=== PATIENT | female | born 1955 | race Caucasian/White ===

== ENCOUNTER → 2017-07-24 | Outpatient (CLI) | payer MEDICARE ==
[2017-07-24 11:07] LABS: ALT 30 U/L (9-52); AST 16 U/L (14-36); Cholesterol 121 mg/dL (<200); HDL Cholesterol 69 mg/dL (40-60)
== END | disposition home or self-care (01) ==
LOC: LABWHC1 09:13
PROVIDERS: ATTEND Internal Medicine Cardiovascular Disease
DX: E78.5 Hyperlipidemia, unspecified (principal); I25.10 Atherosclerotic heart disease of native coronary artery without angina pectoris
CPT/HCPCS: 36415; 80061; 84450; 84460

== ENCOUNTER 2019-09-12 09:06 | Inpatient (IN) | payer MEDICARE ==
[2019-09-12] MEDS ORDERED: NITROGLYCERIN OINT 1 INCH/GM PACKET TOPICAL STA (09:18)
--- NOTE | 2019-09-12 09:33 | ED ---
General Adult HPI - General Chief complaint: Chest Pain Stated complaint: hypertensive Time Seen by Provider: 09/12/19 09:06 Source: patient, EMS, RN notes reviewed Mode of arrival: EMS Limitations: no limitations - History of Present Illness Initial comments: This is a 64-year-old female with a history of hypertension and coronary artery disease with 3 stents laced 5 years ago who states she had the onset this morning and last evening of some jaw pain. She had nausea and vomiting this morning also developed a headache. Patient states the discomfort went into her shoulders and neck. She does say with her previous cardiac events he did not have chest pain but didn't fact have shoulder pain. She also has some diaphoresis. She does feel better she took some Zofran at home was given some more by paramedics. Also her blood pressure was noted be markedly elevated. She was given nitroglycerin for the jaw pain in the blood pressure did respond. Patient states she is still having some of the discomfort described additionally the patient does state that she had the onset 3 weeks ago of shingles. She does point to her right lower and lateral chest wall - Related Data Home Medications Medication Instructions Recorded Confirmed Omeprazole [PriLOSEC] 20 mg PO DAILY 03/04/14 10/17/16 Sertraline [Zoloft] 150 mg PO HS 09/04/14 10/17/16 Aspirin EC [Ecotrin Low Dose] 81 mg PO DAILY 10/17/16 10/17/16 Carvedilol [Coreg] 25 mg PO DAILY 10/17/16 10/17/16 Clopidogrel [Plavix] 75 mg PO DAILY 10/17/16 10/17/16 Previous Rx's Medication Instructions Recorded Nitroglycerin Sl Tabs [Nitrostat] 0.4 mg SUBLINGUAL Q5M PRN #25 tab 08/05/14 Azithromycin [Zithromax Tri-Ricardo] 500 mg PO DAILY #3 tab 10/19/16 Cefuroxime Axetil [Ceftin] 500 mg PO BID #14 tab 10/19/16 Lisinopril [Prinivil] 5 mg PO DAILY #30 tablet 10/19/16 Allergies Allergy/AdvReac Type Severity Reaction Status Date / Time prochlorperazine edisylate AdvReac Severe Hallucinati Verified 10/17/16 23:10 [From Compazine] ons prochlorperazine maleate AdvReac Severe Hallucinati Verified 10/17/16 23:10 [From Compazine] ons Review of Systems ROS Statement: Those systems with pertinent positive or pertinent negative responses have been documented in the HPI. ROS Other: All systems not noted in ROS Statement are negative. Past Medical History Past Medical History: GERD/Reflux, Hypertension, Myocardial Infarction (RI), Osteoarthritis (OA), Pneumonia Additional Past Medical History / Comment(s): ptsd,bbb, stress incont.hiatal hernia, pancreatitis x1,migraines. Shingles Last Myocardial Infarction Date:: 08-02-14 History of Any Multi-Drug Resistant Organisms: MRSA Date of last positivie culture/infection: 03/04/2014 MDRO Source:: Left Hand Past Surgical History: Cholecystectomy, Heart Catheterization With Stent, Joint Replacement Additional Past Surgical History / Comment(s): rt knee PARITAL REPLACEMENT, LT TOTAL KNEE REPLACEMENT, LASIK EYE SX, BENIGN LUMPS REMOVED FROM BREAST. laminectomy Past Anesthesia/Blood Transfusion Reactions: Postoperative Nausea & Vomiting (PONV) Date of Last Stent Placement:: 08-02-14 Past Psychological History: PTSD Smoking Status: Former smoker Past Alcohol Use History: None Reported Past Drug Use History: None Reported - Past Family History Father Family Medical History: Hyperlipidemia Additional Family Medical History / Comment(s): AT AGE 70- COLON CA W/METS TO STOMACH, 6 RI'S FIRST AT AGE 45 HAD QUAD BYPASS, SKIN CA Mother Additional Family Medical History / Comment(s): AT AGE 85- BRAIN TUMOR ALZHIEMERS, X 3 RI AND STROKE General Exam - General Exam Comments Initial Comments: this is a well-developed well-nourished awake alert oriented 3 female Limitations: no limitations General appearance: alert, anxious, in distress Head exam: Present: atraumatic, normocephalic, normal inspection Eye exam: Present: normal appearance, PERRL, EOMI. Absent: scleral icterus, conjunctival injection, periorbital swelling ENT exam: Present: normal exam, mucous membranes moist Neck exam: Present: normal inspection, tenderness, full ROM (Tenderness palpation of the paraspinous muscles of the back and trapezius musculature. No step-off or crepitation), other (Stridor JVD or bruits). Absent: meningismus, lymphadenopathy Respiratory exam: Present: normal lung sounds bilaterally, chest wall tenderness (Reproducible tenderness palpation over the anterior chest wall. No step-off or crepitation. Patient does have evidence of herpes zoster on the right chest wall. No evidence at this time of secondary infection.). Absent: respiratory distress, wheezes, rales, rhonchi, stridor Cardiovascular Exam: Present: regular rate, normal rhythm, normal heart sounds. Absent: systolic murmur, diastolic murmur, rubs, gallop, clicks GI/Abdominal exam: Present: soft, normal bowel sounds. Absent: distended, tenderness, guarding, rebound, rigid Extremities exam: Present: normal inspection, full ROM, normal capillary refill. Absent: tenderness, pedal edema, joint swelling, calf tenderness Back exam: Present: normal inspection Neurological exam: Present: alert, oriented X3, CN II-XII intact Psychiatric exam: Present: normal affect, normal mood Skin exam: Present: warm, intact, normal color, diaphoretic. Absent: rash Course Vital Signs 09/12/19 09/12/19 09/12/19 09:08 09:32 10:51 Temperature 97.7 F Pulse Rate 84 73 79 Respiratory 18 16 16 Rate Blood Pressure 154/86 153/97 181/101 O2 Sat by Pulse 95 97 99 Oximetry 09/12/19 09/12/19 11:38 12:30 Temperature Pulse Rate 76 81 Respiratory 16 18 Rate Blood Pressure 144/75 143/75 O2 Sat by Pulse 99 98 Oximetry - Reevaluation(s) Reevaluation #1: 09/12/19 13:19 Patient did have an elevated d-dimer a CT was ordered to rule out PE EKG Findings - EKG Results: EKG: interpreted by ERMD (Sinus rhythm of 80. Interval 138 QRS duration 120 QT/QTC of 446/514 red bundle-branch block pattern) Medical Decision Making - Medical Decision Making Patient still has complaints of headache though atypical back pain is gone away. The patient prior history previous presentation with cardiac disease with no chest pain patient be admitted I did discuss the case with Dr. Lam - Lab Data Result diagrams: 09/12/19 09:33 09/12/19 09:33 Lab Results 09/12/19 09/12/19 09/12/19 Range/Units 09:33 09:33 09:33 WBC 5.7 (3.8-10.6) k/uL RBC 4.72 (3.80-5.40) m/uL Hgb 12.8 (11.4-16.0) gm/dL Hct 38.9 (34.0-46.0) % MCV 82.4 (80.0-100.0) fL MCH 27.1 (25.0-35.0) pg MCHC 32.9 (31.0-37.0) g/dL RDW 15.8 H (11.5-15.5) % Plt Count 187 (150-450) k/uL Neutrophils % 76 % Lymphocytes % 15 % Monocytes % 5 % Eosinophils % 1 % Basophils % 1 % Neutrophils # 4.3 (1.3-7.7) k/uL Lymphocytes # 0.9 L (1.0-4.8) k/uL Monocytes # 0.3 (0-1.0) k/uL Eosinophils # 0.1 (0-0.7) k/uL Basophils # 0.0 (0-0.2) k/uL PT 11.2 (9.0-12.0) sec INR 1.1 (<1.2) APTT 23.2 (22.0-30.0) sec D-Dimer 0.70 H (<0.60) mg/L FEU Sodium 138 (137-145) mmol/L Potassium 3.9 (3.5-5.1) mmol/L Chloride 107 (98-107) mmol/L Carbon Dioxide 19 L (22-30) mmol/L Anion Gap 12 mmol/L BUN 21 H (7-17) mg/dL Creatinine 0.76 (0.52-1.04) mg/dL Est GFR (CKD-EPI)AfAm >90 (>60 ml/min/1.73 sqM) Est GFR (CKD-EPI)NonAf 84 (>60 ml/min/1.73 sqM) Glucose 185 H (74-99) mg/dL Calcium 9.2 (8.4-10.2) mg/dL Magnesium 1.6 (1.6-2.3) mg/dL Total Bilirubin 0.5 (0.2-1.3) mg/dL AST 21 (14-36) U/L ALT 24 (9-52) U/L Alkaline Phosphatase 130 H (38-126) U/L Creatine Kinase 36 (30-135) U/L Troponin I (0.000-0.034) ng/mL NT-Pro-B Natriuret Pep pg/mL Total Protein 7.1 (6.3-8.2) g/dL Albumin 4.0 (3.5-5.0) g/dL Lipase 86 (23-300) U/L 09/12/19 09/12/19 Range/Units 09:33 09:33 WBC (3.8-10.6) k/uL RBC (3.80-5.40) m/uL Hgb (11.4-16.0) gm/dL Hct (34.0-46.0) % MCV (80.0-100.0) fL MCH (25.0-35.0) pg MCHC (31.0-37.0) g/dL RDW (11.5-15.5) % Plt Count (150-450) k/uL Neutrophils % % Lymphocytes % % Monocytes % % Eosinophils % % Basophils % % Neutrophils # (1.3-7.7) k/uL Lymphocytes # (1.0-4.8) k/uL Monocytes # (0-1.0) k/uL Eosinophils # (0-0.7) k/uL Basophils # (0-0.2) k/uL PT (9.0-12.0) sec INR (<1.2) APTT (22.0-30.0) sec D-Dimer (<0.60) mg/L FEU Sodium (137-145) mmol/L Potassium (3.5-5.1) mmol/L Chloride (98-107) mmol/L Carbon Dioxide (22-30) mmol/L Anion Gap mmol/L BUN (7-17) mg/dL Creatinine (0.52-1.04) mg/dL Est GFR (CKD-EPI)AfAm (>60 ml/min/1.73 sqM) Est GFR (CKD-EPI)NonAf (>60 ml/min/1.73 sqM) Glucose (74-99) mg/dL Calcium (8.4-10.2) mg/dL Magnesium (1.6-2.3) mg/dL Total Bilirubin (0.2-1.3) mg/dL AST (14-36) U/L ALT (9-52) U/L Alkaline Phosphatase (38-126) U/L Creatine Kinase (30-135) U/L Troponin I <0.012 (0.000-0.034) ng/mL NT-Pro-B Natriuret Pep 67 pg/mL Total Protein (6.3-8.2) g/dL Albumin (3.5-5.0) g/dL Lipase (23-300) U/L - Radiology Data Radiology results: report reviewed (Did review the imaging and report no evidence of PE no acute findings.), image reviewed Critical Care Time Critical Care Time: Yes Critical Care Time: 31 minutes of critical care time which includes initial presentation with history physical labs x-rays review of old charting available multiple reevaluation the patient discussion with the main physician admission orders and documentation of the above Disposition Clinical Impression: Atypical chest pain, Unstable angina, Herpes zoster Disposition: ADMITTED IP TO THIS [facility] Condition: Fair Referrals: None,Stated [Primary Care Provider] - 1-2 days
[2019-09-12 09:43] LABS: Basophils % (A) 1 %; Eosinophils # (A) 0.1 k/uL (0-0.7); Eosinophils % (A) 1 %; HCT 38.9 % (34.0-46.0); HGB 12.8 gm/dL (11.4-16.0); Lymphocytes # (A) 0.9 k/uL (1.0-4.8); Lymphocytes % (A) 15 %; MCH 27.1 pg (25.0-35.0); MCHC 32.9 g/dL (31.0-37.0); MCV 82.4 fL (80.0-100.0); Mean Platelet Volume 6.9; Monocytes # (A) 0.3 k/uL (0-1.0); Monocytes % (A) 5 %; Neutrophils # (A) 4.3 k/uL (1.3-7.7); Neutrophils % (A) 76 %; Platelet Count 187 k/uL (150-450); RBC 4.72 m/uL (3.80-5.40); RDW 15.8 % (11.5-15.5); WBC 5.7 k/uL (3.8-10.6)
[2019-09-12] MEDS ORDERED: ONDANSETRON 4 MG/2 ML VIAL IVP STA (09:45)
[2019-09-12 09:53] LABS: ALT 24 U/L (9-52); AST 21 U/L (14-36); African American GFR (CKD) >90 (>60 ml/min/1.73 sqM); Alkaline Phosphatase 130 U/L (38-126); Anion Gap 12 mmol/L; Blood Urea Nitrogen 21 mg/dL (7-17); Calcium 9.2 mg/dL (8.4-10.2); Carbon Dioxide 19 mmol/L (22-30); Chloride 107 mmol/L (98-107); Creatine Kinase 36 U/L (30-135); Glucose 185 mg/dL (74-99); Magnesium 1.6 mg/dL (1.6-2.3); Non-African American GFR(CKD) 84 (>60 ml/min/1.73 sqM); Potassium 3.9 mmol/L (3.5-5.1); Sodium 138 mmol/L (137-145); Total Bilirubin 0.5 mg/dL (0.2-1.3); Total Protein 7.1 g/dL (6.3-8.2)
[2019-09-12 09:57] LABS: INR 1.1 (<1.2); Partial Thromboplastin Time 23.2 sec (22.0-30.0); Prothrombin Time 11.2 sec (9.0-12.0)
[2019-09-12 10:01] LABS: D-Dimer 0.7 mg/L FEU (<0.60)
--- NOTE | 2019-09-12 10:01 | XR ---
EXAMINATION TYPE: XR chest 2V DATE OF EXAM: 09/12/2019 HISTORY: Chest Pain. REFERENCE: Previous study dated 10/17/2016. FINDINGS: The study is rotated both projections There is silhouetting of the left heart border. The heart is mildly prominent. The right lung is ken r. IMPRESSION: I CANNOT EXCLUDE A LEFT LINGULAR INFILTRATE.
[2019-09-12] MEDS ORDERED: ACETAMINOPHEN TAB 325 MG TAB PO STA (10:47)
--- NOTE | 2019-09-12 11:35 | CT ---
EXAMINATION TYPE: CT angio chest DATE OF EXAM: 09/12/2019 11:14 AM COMPARISON: None. HISTORY: Elevated d-dimer, HTN, cough CT DLP: 852.2 mGycm Automated exposure control for dose reduction was used. CONTRAST: CTA scan of the thorax is performed with IV Contrast, patient injected with 100 mL of Isovue 370, pul monary embolism protocol. . FINDINGS: The lungs are clear. There is no significant axillary, internal mammary, mediastinal or hilar adenopathy There is no evidence of pulmonary embolus. The aorta is normal in caliber without dissection. The hea rt is mildly enlarged. There is a prominent, sliding hiatal hernia present. Visualized portions of the upper abdomen are oth erwise unremarkable. IMPRESSION: 1. THIS EXAMINATION IS NEGATIVE FOR PULMONARY EMBOLUS. 2. MILD CARDIOMEGALY. 3. HIATAL HERNIA.
[2019-09-12] MEDS ORDERED: HYDROmorphone 1 MG/ML 1 ML SYRINGE IVP STA (13:20)
[2019-09-12] MEDS ORDERED: NITROGLYCERIN SL TABS 0.4 MG TAB SUBLINGUAL PRN (13:22)
[2019-09-12] MEDS ORDERED: HEPARIN SODIUM,PORCINE 5,000 UNIT/ML 1 ML VIAL IV ONE (13:22)
[2019-09-12] MEDS ORDERED: HEPARIN SOD,PORK IN 0.45% NACL 25,000 UNIT in 0.45% NACL 1 250ML.BAG IV SCH (13:30)
[2019-09-12] MEDS: SODIUM CHLORIDE 0.9% 1,000 ML IV SCH (14:18)
[2019-09-12] MEDS ORDERED: ONDANSETRON 4 MG/2 ML VIAL IVP PRN (17:24)
[2019-09-12] MEDS: NITROGLYCERIN OINT 1 INCH/GM PACKET TOPICAL SCH (18:37)
[2019-09-12] MEDS: GABAPENTIN 100 MG CAP PO SCH (19:34)
[2019-09-12] MEDS: SERTRALINE 100 MG TAB PO SCH (19:34)
[2019-09-12] MEDS: ACETAMINOPHEN TAB 325 MG TAB PO PRN (23:01)
[2019-09-13] MEDS: NITROGLYCERIN OINT 1 INCH/GM PACKET TOPICAL SCH ×4 (00:24→16:43)
[2019-09-13 04:25] LABS: Cholesterol 167 mg/dL (<200); HDL Cholesterol 71 mg/dL (40-60); LDL Cholesterol,Calculated 54 mg/dL (0-99); Triglycerides 209 mg/dL (<150)
[2019-09-13] MEDS ORDERED: HEPARIN SODIUM,PORCINE 5,000 UNIT/ML 1 ML VIAL IV PRN (04:38)
[2019-09-13] MEDS: PANTOPRAZOLE 40 MG TABLET PO SCH (06:10)
--- NOTE | 2019-09-13 08:09 | P.CRDCN ---
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 She has a known history of hypertension, hyperlipidemia, coronary artery disease, prior history of smoking, strong family history of premature coronary artery disease, she presented with an anterior wall myocardial infarction in 2013, underwent cardiac catheterization which revealed a total occlusion of the mid LAD and proximal LAD which underwent stent placement by Dr. Vo. She does not follow regularly with a television reporter or a primary care doctor. also has a history of hiatal hernia and esophageal stricture with prior dilatation. She also has PTSD. Patient was diagnosed with shingles 3 weeks ago. She is currently on treatment for that. She presents to the hospital on this occasion with symptoms of left jaw pain which she described as quite severe in nature. She had associated diaphoresis and nausea with vomiting. According to the patient, the jaw discomfort did radiate into her shoulders and her neck. She states that she did not have pain similar to this with her myocardial infarction, she did have s ome mild diaphoresis at that time. Patient denies any chest discomfort but does complain of some mid epigastric pain that is extremely tender on palpation, and quite tender when she coughs or laughs. Her shingles started in the mid body region on her abdomen and radiates around the right side to her back. Chest x- ray performed on admission here could not exclude a left lingular infiltrate. CTA of the chest was negative for pulmonary embolism, showed some mild cardiomegaly and hiatal hernia. Chest x-ray on presentation here showed a normal sinus rhythm with a right bundle branch block pattern and nonspecific ST- T wave changes. White blood cell count 5.7, hemoglobin 12.8, platelet count 187. D-dimer 0.7. Sodium 138, potassium 3.9, BUN 21 and creatinine 0.7, magnesium 1.6. Troponins have been negative 3. Cholesterol 167, LDL 54, HDL 71, triglycerides 209. Lipase is normal, AST ALT normal. Alk phos 1:30. At the time of my examination this morning, patient denies any chest discomfort, no diaphoresis no shortness of breath or nausea. She does have extreme tenderness in the midepigastric area that seems to radiate through to her back. Very tender on palpation, extremely tender with coughing or laughing. Past Medical History Past Medical History: GERD/Reflux, Hypertension, Myocardial Infarction (RI), Osteoarthritis (OA), Pneumonia Additional Past Medical History / Comment(s): ptsd, stress incont.hiatal hernia, pancreatitis x1,migraines. Shingles Last Myocardial Infarction Date:: 08-02-14 History of Any Multi-Drug Resistant Organisms: MRSA Date of last positivie culture/infection: 03/04/2014 MDRO Source:: Left finger Past Surgical History: Cholecystectomy, Heart Catheterization With Stent, Joint Replacement Additional Past Surgical History / Comment(s): rt knee PARITAL REPLACEMENT, LT TOTAL KNEE REPLACEMENT, LASIK EYE SX, BENIGN LUMPS REMOVED FROM BREAST. laminectomy, 3 cardiac stents. Past Anesthesia/Blood Transfusion Reactions: Postoperative Nausea & Vomiting (PONV) Date of Last Stent Placement:: 08-02-14 Past Psychological History: PTSD Smoking Status: Former smoker Past Alcohol Use History: None Reported Additional Past Alcohol Use History / Comment(s): STARTED SMOKING AT AGE 16 SMOKED 1 TO 1.5 PPD, QUIT 35 YEARS AGO Past Drug Use History: None Reported - Past Family History Father Family Medical History: Hyperlipidemia Additional Family Medical History / Comment(s): AT AGE 70- COLON CA W/METS TO STOMACH, 6 RI'S FIRST AT AGE 45 HAD QUAD BYPASS, SKIN CA Mother Additional Family Medical History / Comment(s): AT AGE 85- BRAIN TUMOR ALZHIEMERS, X 3 RI AND STROKE Medications and Allergies Home Medications Medication Instructions Recorded Confirmed Type Omeprazole [PriLOSEC] 20 mg PO DAILY 03/04/14 09/12/19 History Nitroglycerin Sl Tabs [Nitrostat] 0.4 mg SUBLINGUAL Q5M PRN #25 tab 08/05/14 09/12/19 Rx Sertraline [Zoloft] 100 mg PO HS 09/04/14 09/12/19 History Aspirin EC [Ecotrin Low Dose] 81 mg PO DAILY 10/17/16 09/12/19 History Ibuprofen [Motrin] 600 mg PO Q6HR PRN 09/12/19 09/12/19 History Losartan Potassium [Cozaar] 25 mg PO DAILY 09/12/19 09/12/19 History Allergies Allergy/AdvReac Type Severity Reaction Status Date / Time prochlorperazine edisylate AdvReac Severe Hallucinati Verified 09/12/19 13:45 [From Compazine] ons prochlorperazine maleate AdvReac Severe Hallucinati Verified 09/12/19 13:45 [From Compazine] ons lisinopril AdvReac Coughing Verified 09/12/19 13:45 Physical Exam Vitals: Vital Signs Temp Pulse Pulse Resp BP BP Pulse Ox 09/13/19 03:47 89 18 134/85 96 09/13/19 00:00 80 18 181/93 96 09/12/19 19:16 97.9 F 85 18 180/77 97 09/12/19 16:00 87 20 09/12/19 15:41 97 09/12/19 15:15 97.6 F 87 20 180/79 96 09/12/19 14:00 77 16 150/82 92 L 09/12/19 13:40 75 18 152/77 09/12/19 13:30 80 11 L 152/77 96 09/12/19 13:20 80 6 L 169/104 97 09/12/19 13:10 80 5 L 169/104 95 09/12/19 13:00 76 6 L 166/98 96 09/12/19 12:50 75 13 166/98 96 09/12/19 12:30 82 21 143/75 95 09/12/19 11:38 76 16 144/75 99 09/12/19 10:51 79 16 181/101 99 09/12/19 09:32 73 16 153/97 97 09/12/19 09:08 97.7 F 84 18 154/86 95 Intake and Output 09/12/19 09/13/19 09/13/19 22:59 06:59 14:59 Intake Total 64.468 81.219 Output Total 1 Balance 64.468 80.219 Intake: Intake, IV Titration 64.468 81.219 Amount Heparin Sod,Pork in 0.45% 64.468 81.219 NaCl 25,000 unit In 0.45 % NaCl 1 250ml.bag @ 8.41 UNITS/KG/HR 9.995 mls/hr IV .Q24H [facility] Rx#: [id number] Output: Stool 1 Other: Voiding Method Toilet Toilet # Voids 1 Weight 113 kg PHYSICAL EXAMINATION: GENERAL: 64-year-old female in no acute distress at the time of my examination HEENT: Head is atraumatic, normocephalic. Pupils equal, round. Sclera anicteric. Conjunctiva are clear. Mucous membranes of the mouth are moist. Neck is supple. There is no elevated jugular venous pressure. No carotid bruit is heard. HEART EXAMINATION: Heart S1, S2 normal. No murmur or gallop heard. CHEST EXAMINATION: Lungs are clear to auscultation and precussion. No chest wall tenderness is noted on palpation or with deep breathing. ABDOMEN: Soft, obese, mid epigastric tenderness, evidence of shingles rash from the mid body region in the abdomen around to her back on the right side. Bowel sounds are heard. No organomegaly noted. EXTREMITIES: 2+ peripheral pulses with no evidence of peripheral edema and no calf tenderness noted. NEUROLOGIC patient is awake, alert and oriented 3. . Results 09/12/19 09:33 09/12/19 09:33 Cardiac Enzymes 09/12/19 09/12/19 09/12/19 Range/Units 09:33 09:33 16:03 AST 21 (14-36) U/L Troponin I <0.012 <0.012 (0.000-0.034) ng/mL 09/12/19 Range/Units 20:43 AST (14-36) U/L Troponin I <0.012 (0.000-0.034) ng/mL Coagulation 09/12/19 09/12/19 09/13/19 Range/Units 09:33 20:43 02:43 PT 11.2 (9.0-12.0) sec APTT 23.2 35.8 H 33.9 H (22.0-30.0) sec Lipids 09/13/19 Range/Units 02:43 Triglycerides 209 H (<150) mg/dL Cholesterol 167 (<200) mg/dL HDL Cholesterol 71 H (40-60) mg/dL CBC 09/12/19 Range/Units 09:33 WBC 5.7 (3.8-10.6) k/uL RBC 4.72 (3.80-5.40) m/uL Hgb 12.8 (11.4-16.0) gm/dL Hct 38.9 (34.0-46.0) % Plt Count 187 (150-450) k/uL Comprehensive Metabolic Panel 09/12/19 Range/Units 09:33 Sodium 138 (137-145) mmol/L Potassium 3.9 (3.5-5.1) mmol/L Chloride 107 (98-107) mmol/L Carbon Dioxide 19 L (22-30) mmol/L BUN 21 H (7-17) mg/dL Creatinine 0.76 (0.52-1.04) mg/dL Glucose 185 H (74-99) mg/dL Calcium 9.2 (8.4-10.2) mg/dL AST 21 (14-36) U/L ALT 24 (9-52) U/L Alkaline Phosphatase 130 H (38-126) U/L Total Protein 7.1 (6.3-8.2) g/dL Albumin 4.0 (3.5-5.0) g/dL Current Medications Generic Name Dose Route Start Last Admin Trade Name Freq PRN Reason Stop Dose Admin Acetaminophen 650 mg 09/12/19 17:24 09/12/19 23:01 Tylenol Tab PO 650 mg Q6HR PRN Administration Fever and/ or Pain Aspirin 81 mg 09/13/19 09:00 Aspirin PO DAILY SHARONDA Gabapentin 100 mg 09/12/19 22:00 09/12/19 19:34 Neurontin PO 100 mg TID SHARONDA Administration Heparin Sodium (Porcine) 0 unit 09/13/19 04:38 09/13/19 04:45 Heparin IV 4,000 unit PER PROTOCOL PRN Administration Low PTT Protocol Sodium Chloride 1,000 mls @ 20 mls/hr 09/12/19 13:30 09/12/19 14:18 Saline 0.9% IV 20 mls/hr .Q24H SH[facility]ONDA Administration Heparin Sodium/Sodium Chloride 250 mls @ 9.995 mls/hr 09/12/19 13:30 09/13/19 03:00 25,000 unit/ Sodium Chloride IV 13.46 units/kg/hr .Q24H SH[facility]ONDA 15.996 mls/hr Titration Protocol 8.41 UNITS/KG/HR Nitroglycerin 0.4 mg 09/12/19 13:22 Nitrostat SUBLINGUAL Q5M PRN Chest Pain Nitroglycerin 1 inch 09/12/19 18:00 09/13/19 06:08 Nitro-Bid Oint TOPICAL Not Given Q6HR [facility] Ondansetron HCl 4 mg 09/12/19 17:24 Zofran IVP Q6HR PRN Nausea And Vomiting Pantoprazole Sodium 40 mg 09/13/19 07:30 09/13/19 06:10 Protonix PO 40 mg [id number] SHARONDA Administration Sertraline HCl 100 mg 09/12/19 21:00 09/12/19 19:34 Zoloft PO 100 mg HS SHARONDA Administration Intake and Output 09/12/19 09/13/19 09/13/19 22:59 06:59 14:59 Intake Total 64.468 81.219 Output Total 1 Balance 64.468 80.219 Intake: Intake, IV Titration 64.468 81.219 Amount Heparin Sod,Pork in 0.45% 64.468 81.219 NaCl 25,000 unit In 0.45 % NaCl 1 250ml.bag @ 8.41 UNITS/KG/HR 9.995 mls/hr IV .Q24H [facility] Rx#: [id number] Output: Stool 1 Other: Voiding Method Toilet Toilet # Voids 1 Weight 113 kg 09/12/19 09:33 09/12/19 09:33 EKG Interpretations (text) EKG showed normal sinus rhythm with a right bundle branch block pattern and nonspecific ST-T wave changes. Assessment and Plan Plan: Assessment and plan #1 symptoms of left-sided jaw discomfort with radiation to the shoulders and up per back area, associated diaphoresis, nausea and vomiting. Troponins negative 3. EKG shows a normal sinus rhythm with right bundle branch block pattern and nonspecific ST-T wave changes. CTA of the chest negative for pulmonary embolism. #2 history of anterior wall myocardial infarction with prior stenting of the LAD in 2013 #3 hypertension #4 hyperlipidemia #5 prior history of smoking #6 strong family history of premature coronary artery disease #7 hiatal hernia and history of esophageal stricture with dilatation #8 PTSD #9 shingles #10 noncompliance, patient does not follow with a television reporter or primary care doctor. She also stopped taking her statin. Plan We will obtain an echocardiogram with Doppler study. Continue baby aspirin, Cozaar 25 mg daily, we will also start the patient on a statin, beta tigist. The patient's symptoms of abdominal discomfort could be related to her shingles, recommend a GI evaluation as well. We will discontinue her heparin. She was scheduled to see her accounting manager controller at [place], she did not make that appointment. Once the patient is stable from that perspective, recommend she undergo stress testing. Further recommendations to follow. DNP note has been reviewed, I agree with a documented findings and plan of care. Patient was seen and examined.
[2019-09-13] MEDS ORDERED: NON FORMULARY DRUG (Carvedilol [Coreg] 25 MG) PO SCH (09:00)
[2019-09-13] MEDS ORDERED: ASPIRIN 325 MG TAB PO SCH (09:00)
[2019-09-13] MEDS ORDERED: LISINOPRIL 5 MG TAB PO SCH (09:00)
[2019-09-13] MEDS ORDERED: CLOPIDOGREL 75 MG TAB PO SCH (09:00)
[2019-09-13] MEDS: ASPIRIN 81 MG PO SCH (09:19)
[2019-09-13] MEDS: METOPROLOL TARTRATE 25 MG TAB PO SCH ×2 (09:19→21:22)
[2019-09-13] MEDS: ATORVASTATIN 40 MG TAB PO SCH (09:20)
[2019-09-13] MEDS: GABAPENTIN 100 MG CAP PO SCH ×3 (09:20→21:22)
[2019-09-13] MEDS: ACETAMINOPHEN TAB 325 MG TAB PO PRN ×2 (09:21→19:21)
--- NOTE | 2019-09-13 11:30 | P.HPIM ---
History of Present Illness H&P Date: 09/12/19 Chief Complaint: Chest pain Patient is a 64-year-old female with a known history of coronary artery disease status post stent placement in 2013, hypertension, [place], GERD, osteoarthritis and other multiple medical problems came to ER with complaints of left jaw pain. This is with some shortness of breath and nausea and 1 episode of vomiting. Patient also felt some pain in her left shoulder. Patient says that when she had previous [place] she developed left shoulder pain. She says that she always have atypical symptoms. Patient did have some diaphoresis when she had the pain. Patient also complained of nausea. Blood pressure was elevated on admission. Patient has been having herpes zoster rash on her right anterior abdominal wall below the breast for the past 4 weeks. She completed the course of valacyclovir recently. Denied any newly developed rash. Patient is complaining of burning sensation over the rash. Otherwise no fever no chills. No cough is from pro duction. Denied any recent upper respiratory illnesses. No recent travel. EKG showed normal sinus. CTA of the chest negative for pulmonary embolism. Mild cardiac megaly. Hiatal hernia. Review of Systems Constitutional: Patient denies any fever or chills . No generalized weakness or weight loss. Abdomen: Patient did have nausea and vomiting. No diarrhea and abdominal pain. Cardiovascular: Patient denies any chest pain or short of breath no palpitations. Left jaw pain. Respiratory: patient denied any cough is from production. No shortness of breath Neurologic: Patient denied any numbness or tingling headache. Musculoskeletal: Patient denies any complaints of joint swelling or deformity. Skin: Negative Psychiatric: Negative Endocrine: No heat or cold intolerance. No recent weight gain. Genitourinary: No dysuria or hematuria. All other 14 point ROS negative except the above Past Medical History Past Medical History: GERD/Reflux, Hypertension, Myocardial Infarction (CO), Osteoarthritis (OA), Pneumonia Additional Past Medical History / Comment(s): ptsd, stress incont.hiatal hernia, pancreatitis x1,migraines. Shingles Last Myocardial Infarction Date:: 08-02-14 History of Any Multi-Drug Resistant Organisms: MRSA Date of last positivie culture/infection: 03/04/2014 MDRO Source:: Left finger Past Surgical History: Cholecystectomy, Heart Catheterization With Stent, Joint Replacement Additional Past Surgical History / Comment(s): rt knee PARITAL REPLACEMENT, LT TOTAL KNEE REPLACEMENT, LASIK EYE SX, BENIGN LUMPS REMOVED FROM BREAST. laminectomy, 3 cardiac stents. Past Anesthesia/Blood Transfusion Reactions: Postoperative Nausea & Vomiting (PONV) Date of Last Stent Placement:: 08-02-14 Past Psychological History: PTSD Smoking Status: Former smoker Past Alcohol Use History: None Reported Additional Past Alcohol Use History / Comment(s): STARTED SMOKING AT AGE 16 SMOKED 1 TO 1.5 PPD, QUIT 35 YEARS AGO Past Drug Use History: None Reported - Past Family History Father Family Medical History: Hyperlipidemia Additional Family Medical History / Comment(s): AT AGE 70- COLON CA W/METS TO STOMACH, 6 CO'S FIRST AT AGE 45 HAD QUAD BYPASS, SKIN CA Mother Additional Family Medical History / Comment(s): AT AGE 85- BRAIN TUMOR ALZHIEMERS, X 3 CO AND STROKE Medications and Allergies Home Medications Medication Instructions Recorded Confirmed Type Omeprazole [PriLOSEC] 20 mg PO DAILY 03/04/14 09/12/19 History Nitroglycerin Sl Tabs [Nitrostat] 0.4 mg SUBLINGUAL Q5M PRN #25 tab 08/05/14 09/12/19 Rx Sertraline [Zoloft] 100 mg PO HS 09/04/14 09/12/19 History Aspirin EC [Ecotrin Low Dose] 81 mg PO DAILY 10/17/16 09/12/19 History Ibuprofen [Motrin] 600 mg PO Q6HR PRN 09/12/19 09/12/19 History Losartan Potassium [Cozaar] 25 mg PO DAILY 09/12/19 09/12/19 History Allergies Allergy/AdvReac Type Severity Reaction Status Date / Time prochlorperazine edisylate AdvReac Severe Hallucinati Verified 09/12/19 13:45 [From Compazine] ons prochlorperazine maleate AdvReac Severe Hallucinati Verified 09/12/19 13:45 [From Compazine] ons lisinopril AdvReac Coughing Verified 09/12/19 13:45 Physical Exam Vitals: Vital Signs Temp Pulse Pulse Resp BP BP Pulse Ox 09/12/19 16:00 87 20 09/12/19 15:41 97 09/12/19 15:15 97.6 F 87 20 180/79 96 09/12/19 14:00 77 16 150/82 92 L 11/16/19 13:40 75 18 152/77 09/12/19 13:30 80 11 L 152/77 96 09/12/19 13:20 80 6 L 169/104 97 09/12/19 13:10 80 5 L 169/104 95 09/12/19 13:00 76 6 L 166/98 96 09/12/19 12:50 75 13 166/98 96 09/12/19 12:30 82 21 143/75 95 09/12/19 11:38 76 16 144/75 99 09/12/19 10:51 79 16 181/101 99 09/12/19 09:32 73 16 153/97 97 09/12/19 09:08 97.7 F 84 18 154/86 95 Intake and Output 09/12/19 09/12/19 09/12/19 06:59 14:59 22:59 Other: Voiding Method Toilet # Voids 1 Weight 118.841 kg PHYSICAL EXAMINATION: Patient is lying in the bed comfortably, no acute distress, awake alert and oriented.. HEENT: Normocephalic. Neck is supple. Pupils reactive. Nostrils clear. Oral cavity is moist. Ears reveal no drainage. Neck reveals no JVD, carotid bruits, or thyromegaly. CHEST EXAMINATION: Trachea is central. Symmetrical expansion. Lung gamez clear to auscultation and percussion. CARDIAC: Normal S1, S2 with no gallops. No murmurs ABDOMEN: Soft. Bowel sounds normal. No organomegaly. No abdominal bruits. Patient does have right upper anterior abdominal wall reddish rash with crusted lesions. Extremities: reveal no edema. No clubbing or cyanosis Neurologically awake, alert, oriented x3 with well-coordinated movements. No focal deficits noted Skin: No rash or skin lesions. Psychiatric: Coperative. Nonsuicidal Musculoskeletal: No joint swelling or deformity. Normal range of motion. Results CBC & Chem 7: 09/12/19 09:33 09/12/19 09:33 Labs: Abnormal Lab Results - Last 24 Hours (Table) 09/12/19 09/12/19 09/12/19 Range/Units 09:33 09:33 09:33 RDW 15.8 H (11.5-15.5) % Lymphocytes # 0.9 L (1.0-4.8) k/uL D-Dimer 0.70 H (<0.60) mg/L FEU Carbon Dioxide 19 L (22-30) mmol/L BUN 21 H (7-17) mg/dL Glucose 185 H (74-99) mg/dL Alkaline Phosphatase 130 H (38-126) U/L Thrombosis Risk Factor Assmnt - DVT/VTE Prophylaxis DVT/VTE Prophylaxis: Pharmacologic Prophylaxis ordered - Choose All That Apply Any of the Below Risk Factors Present?: Yes Each Factor Represents 1 point: Obesity (BMI >25) Other Risk Factors: Yes Each Risk Factor Represents 2 Points: Age 61-74 years Thrombosis Risk Factor Assessment Total Risk Factor Score: 3 Thrombosis Risk Factor Assessment Level: Moderate Risk Assessment and Plan Assessment: Atypical chest pain. Rule out ACS Elevated d-dimer level. CT angiogram is negative for pulmonary embolism. History of coronary artery disease status post and placement and [place] in 2014 Recent herpes zoster infection. Currently no new lesions noted. Postherpetic neuralgia PTSD Migraine headaches Hypertension uncontrolled GERD Osteoarthritis Previous history of smoking DVT prophylaxis with heparin subcu Plan: Patient be continued on telemetry monitoring. Serial EKGs and troponins. Continue somatic management for nausea. Patient will be started on Neurontin for postherpetic neuralgia. Continue the home medications and follow closely. Cardiology was consulted for further evaluation. Time with Patient: Greater than 30
[2019-09-13] MEDS: SODIUM CHLORIDE 0.9% 1,000 ML IV SCH (14:44)
[2019-09-13] MEDS ORDERED: LOSARTAN 25 MG TAB PO STA (15:34)
[2019-09-13] MEDS ORDERED: hydrALAZINE HCL 20 MG/ML 1 ML VIAL IVP PRN (17:35)
[2019-09-13] MEDS ORDERED: amLODIPine 5 MG TAB PO STA (17:37)
[2019-09-13] MEDS: SERTRALINE 100 MG TAB PO SCH (21:22)
[2019-09-14] MEDS: ACETAMINOPHEN TAB 325 MG TAB PO PRN ×2 (00:42→09:21)
[2019-09-14] MEDS: NITROGLYCERIN OINT 1 INCH/GM PACKET TOPICAL SCH ×2 (00:43→05:43)
[2019-09-14 03:20] VITALS: TEMP 98.1
[2019-09-14] MEDS: PANTOPRAZOLE 40 MG TABLET PO SCH (06:43)
[2019-09-14] MEDS ORDERED: LOSARTAN 25 MG TAB PO SCH (09:00)
[2019-09-14] MEDS: ASPIRIN 81 MG PO SCH (09:21)
[2019-09-14] MEDS: GABAPENTIN 100 MG CAP PO SCH (09:21)
[2019-09-14] MEDS: METOPROLOL TARTRATE 25 MG TAB PO SCH (09:21)
[2019-09-14] MEDS: ATORVASTATIN 40 MG TAB PO SCH (09:21)
--- NOTE | 2019-09-14 11:01 | ECHOF ---
Referral Reason:chest pain MEASUREMENTS -------- HEIGHT: 160.0 cm WEIGHT: 113.4 kg BP: 155/94 RVIDd: 3.3 cm (< 3.3) IVSd: 1.3 cm (0.6 - 1.1) LVIDd: 5.0 cm (3.9 - 5.3) LVPWd: 1.3 cm (0.6 - 1.1) IVSs: 2.0 cm LVIDs: 3.3 cm LVPWs: 1.7 cm LA Diam: 3.6 cm (2.7 - 3.8) LAESV Index (A-L): 21.74 ml/m Ao Diam: 3.2 cm (2.0 - 3.7) AV Cusp: 2.1 cm (1.5 - 2.6) MV EXCURSION: 14.577 mm (> 18.000) MV EF SLOPE: 49 mm/s (70 - 150) EPSS: 0.8 cm MV E Martir: 0.87 m/s MV DecT: 203 ms MV A Martir: 0.88 m/s MV E/A Ratio: 0.99 RAP: 5.00 mmHg RVSP: 28.49 mmHg TAPSE: 19.37 mm FINDINGS -------- Sinus rhythm. This was a technically adequate study. The left ventricular size is normal. There is mild concentric left ventricular hypertrophy. Overa ll left ventricular systolic function is normal with, an EF between 60 - 65 %. The diastolic fillin g pattern indicates impaired relaxation 23.18. The right ventricle is mildly enlarged. Normal LA size by volume 22+/-6 ml/m2. The right atrium is normal in size. Interatrial and interventricular septum intact. The aortic valve is trileaflet and appears structurally normal. Mild mitral regurgitation is present. Mild tricuspid regurgitation present. Right ventricular systolic pressure is normal at < 35 mmHg. There is no pulmonic regurgitation present. The aortic root size is normal. IVC Not well visulized. There is no pericardial effusion. CONCLUSIONS -------- 1. Sinus rhythm. 2. This was a technically adequate study. 3. The left ventricular size is normal. 4. There is mild concentric left ventricular hypertrophy. 5. Overall left ventricular systolic function is normal with, an EF between 60 - 65 %. 6. The diastolic filling pattern indicates impaired relaxation 23.18.. 7. The right ventricle is mildly enlarged. 8. Normal LA size by volume 22+/-6 ml/m2. 9. The right atrium is normal in size. 10. Interatrial and interventricular septum intact. 11. The aortic valve is trileaflet and appears structurally normal. 12. Mild mitral regurgitation is present. 13. Mild tricuspid regurgitation present. 14. Right ventricular systolic pressure is normal at < 35 mmHg. 15. There is no pulmonic regurgitation present. 16. The aortic root size is normal. 17. IVC Not well visulized. 18. There is no pericardial effusion. DITCH CLEANER: Jeannette Odell RDCS
[2019-09-14] MEDS ORDERED: MAG HYDROX/AL HYDROX/SIMETH 30 ML, diphenhydrAMINE ELIXIR 75 MG, LIDOCAINE VISCOUS 30 ML PO SCH ×3 (12:30)
[2019-09-14] MEDS ORDERED: valACYclovir 500 MG TAB PO SCH (12:30)
[2019-09-14 13:39] VITALS: BP 154/97; PULSE 65; RESP 16
--- NOTE | 2019-09-14 14:51 | P.PN ---
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 She has a known history of hypertension, hyperlipidemia, coronary artery disease, prior history of smoking, strong family history of premature coronary artery disease, she presented with an anterior wall myocardial infarction in 2013, underwent cardiac catheterization which revealed a total occlusion of the mid LAD and proximal LAD which underwent stent placement by Dr. Vo. She does not follow regularly with a crane hooker or a primary care doctor. also has a history of hiatal hernia and esophageal stricture with prior dilatation. She also has PTSD. Patient was diagnosed with shingles 3 weeks ago. She is currently on treatment for that. She presents to the hospital on this occasion with symptoms of left jaw pain which she described as quite severe in nature. She had associated diaphoresis and nausea with vomiting. According to the patient, the jaw discomfort did radiate into her shoulders and her neck. She states that she did not have pain similar to this with her myocardial infarction, she did have some mild diaphoresis at that time. Patient denies any chest discomfort but does complain of some mid epigastric pain that is extremely tender on palpation, and quite tender when she coughs or laughs. Her shingles started in the mid body region on her abdomen and radiates around the right side to her back. Chest x-ray performed on admission here could not exclude a left lingular infiltrate. CTA of the chest was negative for pulmonary embolism, showed some mild cardiomegaly and hiatal hernia. Chest x-ray on presentation here showed a normal sinus rhythm with a right bundle branch block pattern and nonspecific ST- T wave changes. White blood cell count 5.7, hemoglobin 12.8, platelet count 187. D-dimer 0.7. Sodium 138, potassium 3.9, BUN 21 and creatinine 0.7, magnesium 1.6. Troponins have been negative 3. Cholesterol 167, LDL 54, HDL 71, triglycerides 209. Lipase is normal, AST ALT normal. Alk phos 1:30. At the time of my examination this morning, patient denies any chest discomfort, no diaphoresis no shortness of breath or nausea. She does have extreme tenderness in the midepigastric area that seems to radiate through to her back. Very tender on palpation, extremely tender with coughing or laughing. 09/14/2019 Patient was seen and examined this morning, no further chest discomfort. Recent echocardiogram with Doppler study which was performed was reviewed was negative for reversible ischemia. Echocardiogram with Doppler study revealed a normal left ventricular systolic function. Objective - Vital Signs Vital signs: Vital Signs Temp 98.1 F 09/14/19 03:17 Pulse 65 09/14/19 12:00 Resp 16 09/14/19 12:00 BP 154/97 09/14/19 12:00 Pulse Ox 96 09/14/19 12:00 Intake & Output 09/13/19 09/14/19 09/14/19 18:59 06:59 18:59 Intake Total 720 120 462 Output Total 2 Balance 720 118 462 Weight 113.7 kg Intake: Oral 720 120 462 Output: Stool 2 Other: Voiding Method Toilet Toilet # Voids 1 1 - Exam PHYSICAL EXAMINATION: GENERAL: 64-year-old female in no acute distress at the time of my examination HEENT: Head is atraumatic, normocephalic. Pupils equal, round. Sclera anicteric. Conjunctiva are clear. Mucous membranes of the mouth are moist. Neck is supple. There is no elevated jugular venous pressure. No carotid bruit is heard. HEART EXAMINATION: Heart S1, S2 normal. No murmur or gallop heard. CHEST EXAMINATION: Lungs are clear to auscultation and precussion. No chest wall tenderness is noted on palpation or with deep breathing. ABDOMEN: Soft, obese, mid epigastric tenderness, evidence of shingles rash from the mid body region in the abdomen around to her back on the right side. Bowel sounds are heard. No organomegaly noted. EXTREMITIES: 2+ peripheral pulses with no evidence of peripheral edema and no calf tenderness noted. NEUROLOGIC patient is awake, alert and oriented 3. - Labs CBC & Chem 7: 09/12/19 09:33 09/12/19 09:33 Assessment and Plan Plan: Assessment and plan #1 symptoms of left-sided jaw discomfort with radiation to the shoulders and upper back area, associated diaphoresis, nausea and vomiting. Troponins negative 3. EKG shows a normal sinus rhythm with right bundle branch block pattern and nonspecific ST-T wave changes. CTA of the chest negative for pulmonary embolism. #2 history of anterior wall myocardial infarction with prior stenting of the LAD in 2014 #3 hypertension #4 hyperlipidemia #5 prior history of smoking #6 strong family history of premature coronary artery disease #7 hiatal hernia and history of esophageal stricture with dilatation #8 PTSD #9 shingles #10 noncompliance, patient does not follow with a crane hooker or primary care doctor. She also stopped taking her statin. Plan From cardiology's perspective, the patient may be discharged home today. She's been advised to follow-up with cardiology and to establish a primary care doctor. DNP note has been reviewed, I agree with a documented findings and plan of care. Patient was seen and examined.
--- NOTE | 2019-09-14 15:16 | P.DS ---
Providers Date of admission: 09/14/19 08:43 Expected date of discharge: 09/14/19 Attending physician: Sherri Lam Consults: 09/12/19 13:22 Consult Physician Urgent Consulting Provider: Cnythia Duarte Consult Reason/Comments: Atypical chest pain Do you want consulting provider notified?: Yes Primary care physician: Stated None Hospital Course: Final diagnosis -Atypical chest pain -Elevated d-dimer level. CT angiogram is negative for pulmonary embolism. -History of coronary artery disease status post and placement and [place] in 2013 -Recent herpes zoster infection -Postherpetic neuralgia -PTSD -Migraine headaches -Hypertension uncontrolled -GERD -Osteoarthritis -Previous history of smoking -DVT prophylaxis Discharge disposition Patient is being discharged in a stable condition with guarded prognosis to home and will follow-up with cardiology in 1-2 weeks as discussed. Patient was given resources to follow-up with primary care provider. Total time taken is 35 minutes. History of present illness This is a 64-year-old female who was recently admitted with complaints of jaw pain, shortness of breath, nausea and was being closely monitored. Cardiology was following. During hospitalization patient underwent an echo that was normal with an EF of 60 -65%. Patient will follow-up with cardiology in the outpatient setting in 1-2 weeks for possible stress test. Patient currently does not have a primary care provider and resources were provided upon discharge. Patient instructed and encouraged to obtain a primary care provider upon discharge for continuity of care. Patient verbalized understanding of this treatment plan. During hospitalization patient had continued opened oozing lesions noted underneath the breast area that radiates around the back and linear pattern and is recently just had herpes zoster infection. Patient will be started on Valtrex and will continue in the outpatient setting. Currently patient's condition is stable with much improvement in like to be discharged today. Patient denies any chest pain, shortness of breath, or palpitations. Patient is afebrile. Patient denies any nausea or vomiting and is been tolerating diet. Guarded prognosis. On exam vital signs are stable. Temp is 98.1F, pulse is 65, respirations are 16, blood pressure is 154/97, oxygen saturation is 96% on room air. Cardio S1, S2 are present. Respiratory system shows diminished breath sounds at the bases otherwise clear to auscultation. Abdomen is soft, obese, and nontender. Nervous system shows no focal deficits. Please refer to medication reconciliation sheet for a list of medications. Patient Condition at Discharge: Fair Plan - Discharge Summary Discharge Rx Participant: No New Discharge Prescriptions: New Atorvastatin [Lipitor] 40 mg PO DAILY 30 Days #30 tab Metoprolol Tartrate [Lopressor] 25 mg PO BID 30 Days #60 tab Gabapentin [Neurontin] 100 mg PO TID #12 cap valACYclovir [Valtrex] 1,000 mg PO DAILY 7 Days #7 tab Continue Omeprazole [PriLOSEC] 20 mg PO DAILY Nitroglycerin Sl Tabs [Nitrostat] 0.4 mg SUBLINGUAL Q5M PRN #25 tab PRN Reason: Chest Pain Sertraline [Zoloft] 100 mg PO HS Aspirin EC [Ecotrin Low Dose] 81 mg PO DAILY Losartan Potassium [Cozaar] 25 mg PO DAILY Discontinued Ibuprofen [Motrin] 600 mg PO Q6HR PRN PRN Reason: Pain Discharge Medication List Omeprazole [PriLOSEC] 20 mg PO DAILY 03/04/14 [History] Nitroglycerin Sl Tabs [Nitrostat] 0.4 mg SUBLINGUAL Q5M PRN #25 tab 08/05/14 [Rx] Sertraline [Zoloft] 100 mg PO HS 09/04/14 [History] Aspirin EC [Ecotrin Low Dose] 81 mg PO DAILY 10/17/16 [History] Losartan Potassium [Cozaar] 25 mg PO DAILY 09/12/19 [History] Atorvastatin [Lipitor] 40 mg PO DAILY 30 Days #30 tab 09/14/19 [Rx] Gabapentin [Neurontin] 100 mg PO TID #12 cap 09/14/19 [Rx] Metoprolol Tartrate [Lopressor] 25 mg PO BID 30 Days #60 tab 09/14/19 [Rx] valACYclovir [Valtrex] 1,000 mg PO DAILY 7 Days #7 tab 09/14/19 [Rx] Follow up Appointment(s)/Referral(s): Gerber Britt DO [REFERRING] - 1 Week Cynthia Duarte MD [STAFF PHYSICIAN] - 09/29/19 2:30 pm (Saturday) Patient Instructions/Handouts: Chest Pain (DC) Activity/Diet/Wound Care/Special Instructions: Activity limited until follow-up Follow-up with primary care provider upon discharge Follow Up with cardiology as discussed and scheduled Continue current heart healthy diet Discharge Disposition: HOME SELF-CARE
--- NOTE | 2019-09-17 21:16 | P.PN ---
Subjective Progress Note Date: 09/13/19 Principal diagnosis: Chest pain Posthepatitic neuralgia. Patient is a 64-year-old female with a known history of coronary artery disease status post stent placement in 2013, hypertension, [place], GERD, osteoarthritis and other multiple medical problems came to ER with complaints of left jaw pain. This is with some shortness of breath and nausea and 1 episode of vomiting. Patient also felt some pain in her left shoulder. Patient says that when she had previous [place] she developed left shoulder pain. She says that she always have atypical symptoms. Patient did have some diaphoresis when she had the pain. Patient also complained of nausea. Blood pressure was elevated on admission. Patient has been having herpes zoster rash on her right anterior abdominal wall below the breast for the past 4 weeks. She completed the course of valacyclovir recently. Denied any newly developed rash. Patient is complaining of burning sensation over the rash. Otherwise no fever no chills. No cough is from production. Denied any recent upper respiratory illnesses. No recent travel. EKG showed normal sinus. CTA of the chest negative for pulmonary embolism. Mild cardiac megaly. Hiatal hernia. 09/13/2019 Patient denied any complaints of chest pain today. Right upper quadrant abdominal burning sensation did improve with Neurontin. Cardiology has seen the patient. 2-D echocardiogram was done report is pending. Further recommendations based on the test reports. Otherwise patient denied any complaints of shortness of breath. No nausea vomiting or abdominal pain. Tolerating oral diet. No complaints of constipation. Patient has been afebrile. No cough or sputum production. Current medications reviewed. Objective - Vital Signs Vital signs: Vital Signs Temp 97.7 F 09/13/19 08:00 Pulse 73 09/13/19 08:00 Resp 18 09/13/19 08:00 BP 176/89 09/13/19 08:00 Pulse Ox 95 09/13/19 08:00 Intake & Output 09/12/19 09/13/19 09/13/19 18:59 06:59 18:59 Intake Total 145.687 360 Output Total 1 Balance 144.687 360 Weight 118.841 kg 113 kg Intake: Intake, IV Titration 145.687 Amount Heparin Sod,Pork in 0.45% 145.687 NaCl 25,000 unit In 0.45 % NaCl 1 250ml.bag @ 8.41 UNITS/KG/HR 9.995 mls/hr IV .Q24H [facility] Rx#: [id number] Oral 360 Output: Stool 1 Other: Voiding Method Toilet Toilet # Voids 1 1 - Exam PHYSICAL EXAMINATION: Patient is lying in the bed comfortably, no acute distress, awake alert and oriented.. HEENT: Normocephalic. Neck is supple. Pupils reactive. Nostrils clear. Oral cavity is moist. Ears reveal no drainage. Neck reveals no JVD, carotid bruits, or thyromegaly. CHEST EXAMINATION: Trachea is central. Symmetrical expansion. Lung gamez clear to auscultation and percussion. CARDIAC: Normal S1, S2 with no gallops. No murmurs ABDOMEN: Soft. Bowel sounds normal. No organomegaly. No abdominal bruits. Patient does have right upper anterior abdominal wall reddish rash with crusted lesions. Extremities: reveal no edema. No clubbing or cyanosis Neurologically awake, alert, oriented x3 with well-coordinated movements. No focal deficits noted Skin: No rash or skin lesions. Psychiatric: Coperative. Nonsuicidal Musculoskeletal: No joint swelling or deformity. Normal range of motion. - Labs CBC & Chem 7: 09/12/19 09:33 09/12/19 09:33 Labs: Abnormal Lab Results - Last 24 Hours (Table) 09/12/19 09/13/19 09/13/19 Range/Units 20:43 02:43 02:43 APTT 35.8 H 33.9 H (22.0-30.0) sec Triglycerides 209 H (<150) mg/dL HDL Cholesterol 71 H (40-60) mg/dL 09/13/19 Range/Units 08:59 APTT 60.0 H (22.0-30.0) sec Triglycerides (<150) mg/dL HDL Cholesterol (40-60) mg/dL Assessment and Plan Assessment: Atypical chest pain. Ruled out ACS Elevated d-dimer level. CT angiogram is negative for pulmonary embolism. History of coronary artery disease status post and placement and [place] in 2014 Recent herpes zoster infection. Currently no new lesions noted. Postherpetic neuralgia PTSD Migraine headaches Hypertension uncontrolled GERD Osteoarthritis Previous history of smoking DVT prophylaxis with heparin subcu Plan: Patient be continued on telemetry monitoring. Serial EKGs and troponins. Continue symptomatic management for nausea. Patient was started on Neurontin for postherpetic neuralgia. Continue the home medications and follow closely. Cardiology is following. 2-D echocardiogram was done.. Time with Patient: Greater than 30
== END 2019-09-14 18:03 | disposition home or self-care (01) | DRG 313 ==
LOC: EC 09:06 → 1SOBS 13:22 → 3SCARD 20:53 → OBSVTOIN 09-14 08:43
PROVIDERS: ADMIT Internal Medicine; ATTEND Internal Medicine
DX: R07.89 Other chest pain (principal); B02.29 Other postherpetic nervous system involvement; Z68.41 Body mass index [BMI] 40.0-44.9, adult; I25.10 Atherosclerotic heart disease of native coronary artery without angina pectoris; I11.9 Hypertensive heart disease without heart failure; R79.89 Other specified abnormal findings of blood chemistry; E66.9 Obesity, unspecified; E78.5 Hyperlipidemia, unspecified; F43.10 Post-traumatic stress disorder, unspecified; G43.909 Migraine, unspecified, not intractable, without status migrainosus; I25.2 Old myocardial infarction; I45.10 Unspecified right bundle-branch block; K21.9 Gastro-esophageal reflux disease without esophagitis; K44.9 Diaphragmatic hernia without obstruction or gangrene; M19.90 Unspecified osteoarthritis, unspecified site; N39.3 Stress incontinence (female) (male); Z79.02 Long term (current) use of antithrombotics/antiplatelets; Z79.82 Long term (current) use of aspirin; Z79.899 Other long term (current) drug therapy; Z95.5 Presence of coronary angioplasty implant and graft; Z96.652 Presence of left artificial knee joint; Z91.19 Patient's noncompliance with other medical treatment and regimen; Z87.891 Personal history of nicotine dependence; Z88.8 Allergy status to other drugs, medicaments and biological substances; Z87.01 Personal history of pneumonia (recurrent); Z86.14 Personal history of Methicillin resistant Staphylococcus aureus infection; Z90.49 Acquired absence of other specified parts of digestive tract; Z80.0 Family history of malignant neoplasm of digestive organs; Z82.3 Family history of stroke; Z82.49 Family history of ischemic heart disease and other diseases of the circulatory system; Z80.8 Family history of malignant neoplasm of other organs or systems; Z82.0 Family history of epilepsy and other diseases of the nervous system
CPT/HCPCS: 36415; 71046; 71275; 80053; 80061; 82550; 83690; 83735; 83880; 84484; 85025; 85379; 85610; 85730; 93005; 93306; 96365; 96375; 96376; 99291

== ENCOUNTER 2020-02-16 01:05 | Inpatient (IN) | payer MEDICARE ==
[2020-02-16] MEDS ORDERED: HEPARIN SODIUM,PORCINE 5,000 UNIT/ML 1 ML VIAL IV PRN (01:20)
[2020-02-16] MEDS ORDERED: NITROGLYCERIN-D5W PMX 50 MG in DEXTROSE/WATER 1 250ML.BAG IV ONE (01:20)
--- NOTE | 2020-02-16 01:24 | ED ---
General Adult HPI - General Stated complaint: Angina Time Seen by Provider: 02/16/20 01:08 Source: patient, EMS Mode of arrival: EMS Limitations: no limitations - History of Present Illness Initial comments: Dictation was produced using Reimage dictation software. please excuse any grammatical, word or spelling errors. This patient was cared for during a federal and state declared state of emergency secondary to Covid 19 Chief Complaint: 64-year-old female transferred from [facility] for unstable angina History of Present Illness: 24-year-old female she has past medical history of coronary artery disease. She had received multiple stents in 2003. Patient initially presented to [facility] for chest pain and shortness of breath. Patient states that the pain is substernal. No associated diaphoresis. She was short of breath. She was seen and evaluated [facility] started on nitroglycerin and heparin for concerns of unstable angina. EKG showed right bundle branch block. Patient put improvement of symptoms after medical intervention. She was transferred here for further care. Patient states that last year she was seen at [facility] by high school counselor. She did have a chemical stress tests which she states was normal. This is approximately a year and a half ago. The ROS documented in this emergency department record has been reviewed and confirmed by me. Those systems with pertinent positive or negative responses have been documented in the HPI. All other systems are other negative and/or noncontributory. PHYSICAL EXAM: General Impression: Alert and oriented x3, not in acute distress HEENT: Normocephalic atraumatic, extra-ocular movements intact, pupils equal and reactive to light bilaterally, mucous membranes moist. Cardiovascular: Heart regular rate and rhythm Chest: Able to complete full sentences, no retractions, no tachypnea Abdomen: Bowel sounds present, abdomen soft, non-tender, non-distended, no organomegaly Musculoskeletal: Pulses present and equal in all extremities, no peripheral edema Motor: no focal deficits noted Neurological: CN II-XII grossly intact, no focal motor or sensory deficits noted Skin: Intact with no visualized rashes Psych: Normal affect and mood ED course: 64-year-old female presents with EMS for unstable angina. She is transferred from [facility]. As upon arrival are within acceptable limits. Transfer documentation was reviewed. Patient had negative cardiac workup. She did not have any significant lab abnormalities. EKG there showed right bundle branch block. Patient was placed in bed 9. EKG was performed right away. Demonstrates right bundle branch block with no apparent changes when compared to EKG from [facility]. EKG was compared to EKG from 09/12/2019 with no apparent changes. Patient will be admitted to city call. [facility] call today some physician group. Pending discussion with Dr. Gandhi. Ca rdiology with consulted. EKG interpretation: Ventricular rate 81, normal sinus rhythm,. Interval 140, QRS 116, QTC 494. No OK prolongation, no QTC prolongation, no ST or T-wave changes noted. EKG compared to 09/12/2019 showing no changes. Overall, this EKG is unremarkable - Related Data Home Medications Medication Instructions Recorded Confirmed Omeprazole [PriLOSEC] 20 mg PO DAILY 03/04/14 09/12/19 Sertraline [Zoloft] 100 mg PO HS 09/04/14 09/12/19 Aspirin EC [Ecotrin Low Dose] 81 mg PO DAILY 10/17/16 09/12/19 Losartan Potassium [Cozaar] 25 mg PO DAILY 09/12/19 09/12/19 Previous Rx's Medication Instructions Recorded Nitroglycerin Sl Tabs [Nitrostat] 0.4 mg SUBLINGUAL Q5M PRN #25 tab 08/05/14 Atorvastatin [Lipitor] 40 mg PO DAILY 30 Days #30 tab 09/14/19 Gabapentin [Neurontin] 100 mg PO TID #12 cap 09/14/19 Losartan [Cozaar] 25 mg PO DAILY #30 tab 09/14/19 Metoprolol Tartrate [Lopressor] 25 mg PO BID 30 Days #60 tab 09/14/19 valACYclovir [Valtrex] 1,000 mg PO DAILY 7 Days #7 tab 09/14/19 Allergies Allergy/AdvReac Type Severity Reaction Status Date / Time prochlorperazine edisylate AdvReac Severe Hallucinati Verified 09/12/19 13:45 [From Compazine] ons prochlorperazine maleate AdvReac Severe Hallucinati Verified 09/12/19 13:45 [From Compazine] ons lisinopril AdvReac Coughing Verified 09/12/19 13:45 Review of Systems ROS Statement: Those systems with pertinent positive or pertinent negative responses have been documented in the HPI. ROS Other: All systems not noted in ROS Statement are negative. Past Medical History Past Medical History: GERD/Reflux, Hypertension, Myocardial Infarction (ID), Osteoarthritis (OA), Pneumonia Additional Past Medical History / Comment(s): ptsd, stress incont.hiatal hernia, pancreatitis x1,migraines. Shingles Last Myocardial Infarction Date:: 08-02-14 History of Any Multi-Drug Resistant Organisms: MRSA Date of last positivie culture/infection: 03/04/2014 MDRO Source:: Left finger Past Surgical History: Cholecystectomy, Heart Catheterization With Stent, Joint Replacement Additional Past Surgical History / Comment(s): rt knee PARITAL REPLACEMENT, LT TOTAL KNEE REPLACEMENT, LASIK EYE SX, BENIGN LUMPS REMOVED FROM BREAST. laminectomy, 3 cardiac stents. Past Anesthesia/Blood Transfusion Reactions: Postoperative Nausea & Vomiting (PONV) Date of Last Stent Placement:: 08-02-14 Past Psychological History: Depression, PTSD Smoking Status: Former smoker Past Alcohol Use History: Occasional Past Drug Use History: None Reported - Past Family History Father Family Medical History: Hyperlipidemia Additional Family Medical History / Comment(s): AT AGE 70- COLON CA W/METS TO STOMACH, 6 ID'S FIRST AT AGE 45 HAD QUAD BYPASS, SKIN CA Mother Additional Family Medical History / Comment(s): AT AGE 85- BRAIN TUMOR ALZHIEMERS, X 3 ID AND STROKE General Exam Limitations: no limitations Course Vital Signs 02/16/20 02/16/20 01:14 01:20 Temperature 98.2 F Pulse Rate 86 Pulse Rate [ 89 Grease Remover ] Respiratory 18 Rate Blood Pressure 155/95 O2 Sat by Pulse 97 Oximetry Disposition Clinical Impression: Unstable angina Disposition: ADMITTED IP TO THIS HOSP Condition: Fair Referrals: None,Stated [Primary Care Provider] - 1-2 days Decision Time: 01:24
[2020-02-16] MEDS ORDERED: HEPARIN SOD,PORK IN 0.45% NACL 25,000 UNIT in 0.45% NACL 1 250ML.BAG IV SCH (01:30)
--- NOTE | 2020-02-16 02:34 | P.HPIM ---
History of Present Illness H&P Date: 02/16/20 The patient is a 64-year-old female with a PMH of coronary artery disease status post PA and 3 stents in 2013, hypertension, and hyperlipidemia who presented to the ED as a transfer from [facility] for concerns of an PA. The patient reports that she was in her usual state of health until about 7 PM last night when she suddenly developed a left shoulder pressure-like discomfort with radiation to her left arm with associated shortness of breath and nausea. She notes that this is in line with her previous PA when she had essentially the same symptoms. She noted that her shoulder discomfort was an 8 out of 10 at onset, and persisted until she was initiated on the nitroglycerin infusion at [facility]. At time of interview, she noted that her discomfort had subsided and she had no complaints. She denied fever, chills, chest pain, cough, vomiting, or diarrhea. She was noted to be very hypertensive upon presentation at [facility] with BP 202/95, and a pulse of 107. EKG had revealed sinus tachycardia at 10 3 bpm with a right bundle branch block and a chest x-ray had revealed cardiomegaly but was otherwise unremarkable. Her laboratory evaluation from [facility] head revealed a troponin T of less than 0.03, magnesium 1.5, sodium 137, potassium 3.7, chloride 105, CO2 19, BUN 18, creatinine 0.87, glucose 258, WBC count 7.76, hemoglobin 12.3, and platelets of 191. She was given aspirin 325 mg and was started on nitroglycerin and heparin infusions and was transferred to [facility] for further management. Review of Systems Pertinent positives and negatives as discussed in HPI, a complete review of systems was performed and all other systems are negative. Past Medical History Past Medical History: GERD/Reflux, Hypertension, Myocardial Infarction (PA), Osteoarthritis (OA), Pneumonia Additional Past Medical History / Comment(s): ptsd, stress incont.hiatal hernia, pancreatitis x1,migraines. Shingles Last Myocardial Infarction Date:: 08-02-14 History of Any Multi-Drug Resistant Organisms: MRSA Date of last positivie culture/infection: 03/04/2014 MDRO Source:: Left finger Past Surgical History: Cholecystectomy, Heart Catheterization With Stent, Joint Replacement Additional Past Surgical History / Comment(s): rt knee PARITAL REPLACEMENT, LT TOTAL KNEE REPLACEMENT, LASIK EYE SX, BENIGN LUMPS REMOVED FROM BREAST. laminectomy, 3 cardiac stents. Past Anesthesia/Blood Transfusion Reactions: Postoperative Nausea & Vomiting (PONV) Date of Last Stent Placement:: 08-02-14 Past Psychological History: Depression, PTSD Smoking Status: Former smoker Past Alcohol Use History: Occasional Past Drug Use History: None Reported - Past Family History Father Family Medical History: Hyperlipidemia Additional Family Medical History / Comment(s): AT AGE 70- COLON CA W/METS TO STOMACH, 6 PA'S FIRST AT AGE 45 HAD QUAD BYPASS, SKIN CA Mother Additional Family Medical History / Comment(s): AT AGE 85- BRAIN TUMOR ALZHIEMERS, X 3 PA AND STROKE Medications and Allergies Home Medications Medication Instructions Recorded Confirmed Type Omeprazole [PriLOSEC] 20 mg PO DAILY 03/04/14 09/12/19 History Nitroglycerin Sl Tabs [Nitrostat] 0.4 mg SUBLINGUAL Q5M PRN #25 tab 08/05/14 09/12/19 Rx Sertraline [Zoloft] 100 mg PO HS 09/04/14 09/12/19 History Aspirin EC [Ecotrin Low Dose] 81 mg PO DAILY 10/17/16 09/12/19 History Losartan Potassium [Cozaar] 25 mg PO DAILY 09/12/19 09/12/19 History Atorvastatin [Lipitor] 40 mg PO DAILY 30 Days #30 tab 09/14/19 Rx Gabapentin [Neurontin] 100 mg PO TID #12 cap 09/14/19 Rx Losartan [Cozaar] 25 mg PO DAILY #30 tab 09/14/19 Rx Metoprolol Tartrate [Lopressor] 25 mg PO BID 30 Days #60 tab 09/14/19 Rx valACYclovir [Valtrex] 1,000 mg PO DAILY 7 Days #7 tab 09/14/19 Rx Allergies Allergy/AdvReac Type Severity Reaction Status Date / Time prochlorperazine edisylate AdvReac Severe Hallucinati Verified 09/12/19 13:45 [From Compazine] ons prochlorperazine maleate AdvReac Severe Hallucinati Verified 09/12/19 13:45 [From Compazine] ons lisinopril AdvReac Coughing Verified 09/12/19 13:45 Physical Exam Vitals: Vital Signs Temp Pulse Pulse Resp BP Pulse Ox 02/16/20 01:20 89 02/16/20 01:14 98.2 F 86 18 155/95 97 Intake and Output 02/15/20 02/15/20 02/16/20 14:59 22:59 06:59 Other: Weight 113.398 kg General: non toxic, no distress, appears at stated age, morbidly obese Derm: no unusual rashes/lesions no unusual ecchymoses, warm, dry Head: atraumatic, normocephalic, symmetric Eyes: EOMI, no lid lag, anicteric sclera, pupils equal round reactive to light ENT: Nose and ears atraumatic, no thrush, no pharyngeal erythema Neck: No thyromegaly, no cervical lymphadenopathy, trachea midline, supple Mouth: no lip lesion, mucus membranes moist Cardiovascular: S1S2 reg, no murmur, positive posterior tibial pulse bilateral, no edema, capillary refill less than 2 seconds Lungs: CTA bilateral, no rhonchi, no rales , no accessory muscle use Abdominal: soft, nontender to palpation, no guarding, no appreciable organomegaly, normal bowel sounds Ext: no gross muscle atrophy, muscle strength 5 out of 5 in all 4 extremities grossly, no contractures, Neuro: CN II-XI grossly intact, light touch intact all 4 extremities, finger to nose within normal limits, Psych: Alert, oriented, appropriate affect Assessment and Plan Plan: Unstable angina -Continue with aspirin, statin -Heparin infusion -Nitroglycerin infusion -Cardiology consulted -Trend troponin -Cardiac monitoring -Echocardiogram -Check A1c, lipid panel Hyperglycemia -Possibly undiagnosed Type 2 DM -Check A1C Chronic conditions: HTN, HTN, GERD, DJD -C/w home meds DVT prophylaxis -Heparin infusion The patient is admitted with an anticipated less than 2 midnight stay for evaluation of Unstable angina CODE STATUS: Full Code Discussed with: Patient, daughter Anticipated discharge date: 1-[address]: Home A total of 40 minutes was spent on the care of this complex patient more than 50% of the time was spent in counseling and care coordination.
[2020-02-16] MEDS ORDERED: ACETAMINOPHEN TAB 325 MG TAB PO PRN (08:06)
[2020-02-16] MEDS ORDERED: NITROGLYCERIN SL TABS 0.4 MG TAB SUBLINGUAL ONE (08:08)
[2020-02-16 08:41] LABS: Basophils % (A) 1 %; Eosinophils # (A) 0.2 k/uL (0-0.7); Eosinophils % (A) 2 %; HCT 37.7 % (34.0-46.0); HGB 11.8 gm/dL (11.4-16.0); Lymphocytes # (A) 2.5 k/uL (1.0-4.8); Lymphocytes % (A) 32 %; MCH 26.8 pg (25.0-35.0); MCHC 31.4 g/dL (31.0-37.0); MCV 85.4 fL (80.0-100.0); Mean Platelet Volume 9.1; Monocytes # (A) 0.4 k/uL (0-1.0); Monocytes % (A) 5 %; Neutrophils # (A) 4.5 k/uL (1.3-7.7); Neutrophils % (A) 59 %; Platelet Count 164 k/uL (150-450); RBC 4.42 m/uL (3.80-5.40); RDW 14.5 % (11.5-15.5); WBC 7.7 k/uL (3.8-10.6)
[2020-02-16] MEDS ORDERED: ALPRAZolam 0.5 MG TAB PO PRN (08:45)
[2020-02-16] MEDS ORDERED: ATORVASTATIN 80 MG TAB PO STA (08:45)
[2020-02-16] MEDS ORDERED: ALPRAZolam 0.25 MG TAB PO PRN (08:45)
[2020-02-16] MEDS ORDERED: NITROGLYCERIN SL TABS 0.4 MG TAB SUBLINGUAL PRN ×2 (08:45→11:20)
[2020-02-16] MEDS ORDERED: ASPIRIN 325 MG TAB PO STA (08:45)
[2020-02-16] MEDS ORDERED: SODIUM CHLORIDE 0.9% 1,000 ML in EMPTY BAG 1 BAG IV ONE (08:45)
[2020-02-16 08:49] LABS: Calcium 9.2 mg/dL (8.4-10.2)
[2020-02-16 09:39] LABS: Cholesterol 177 mg/dL (<200); HDL Cholesterol 78 mg/dL (40-60); LDL Cholesterol,Calculated 62 mg/dL (0-99); Triglycerides 183 mg/dL (<150)
[2020-02-16] MEDS ORDERED: LIDOCAINE 1% INJ 10MG/ML (20 ML MDV) ONE (09:45)
[2020-02-16] MEDS ORDERED: fentaNYL (PF) 50 MCG/ML 2 ML AMP ONE (09:45)
[2020-02-16] MEDS ORDERED: HEPARIN SODIUM 1,000 UN/ML (10ML VL) ONE (09:45)
[2020-02-16] MEDS ORDERED: VERAPAMIL 2.5 MG/ML 2 ML AMP ONE (09:45)
[2020-02-16] MEDS: METOPROLOL TARTRATE 25 MG TAB PO SCH ×2 (09:49→20:27)
--- NOTE | 2020-02-16 10:10 | P.CRDCN ---
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 She has a known history of coronary artery disease with prior multivessel stenting, she presented with an anterior wall myocardial infarction in 2013 at which time she underwent a cardiac catheterization which revealed a total occlusion of the mid LAD and proximal LAD, she underwent stenting by Dr. Vo at that time. Patient also has history of hypertension, hyperlipidemia, prior history of smoking, she quit smoking several years ago, family history of premature coronary artery disease. She also has a history of a hiatal hernia with esophageal stricture and prior diastolic patient. History of PTSD. Patient presents to the hospital on this occasion with symptoms of midsternal chest pressure and heaviness with radiation into the left shoulder, axilla, and scapula area posteriorly. She states that the symptoms reminded her of what she had at the time of her myocardial infarction and stenting. According to the patient, overall at home she has been doing fairly well until this episode. She did have 2 subsequent episodes through the night last night requiring sublingual nitroglycerin with relief of symptoms. She is currently on IV heparin and IV nitroglycerin. Troponins have been negative 3. White blood cell count 7.7, hemoglobin 11.8, platelet count 164. Sodium 139, potassium 5.0, BUN 21, creatinine 0.8, cholesterol 177, LDL 62, HDL 78, triglycerides 183. EKG shows a normal sinus rhythm with an incomplete right bundle branch block pattern and nonspecific ST-T wave changes. Chest x-ray did not reveal any acute findings. Blood pressure 135/60 with a heart rate in the 70s to 80s, 100% on room air. Past Medical History Past Medical History: GERD/Reflux, Hypertension, Myocardial Infarction (CA), Osteoarthritis (OA), Pneumonia Additional Past Medical History / Comment(s): ptsd, stress incont.hiatal hernia, pancreatitis x1,migraines. Shingles Last Myocardial Infarction Date:: 08-02-14 History of Any Multi-Drug Resistant Organisms: MRSA Date of last positivie culture/infection: 03/04/2014 MDRO Source:: Left finger Past Surgical History: Cholecystectomy, Heart Catheterization With Stent, Joint Replacement Additional Past Surgical History / Comment(s): rt knee PARITAL REPLACEMENT, LT TOTAL KNEE REPLACEMENT, LASIK EYE SX, BENIGN LUMPS REMOVED FROM BREAST. laminectomy, 3 cardiac stents. Past Anesthesia/Blood Transfusion Reactions: Postoperative Nausea & Vomiting (PONV) Date of Last Stent Placement:: 08-02-14 Past Psychological History: Depression, PTSD Smoking Status: Former smoker Past Alcohol Use History: Occasional Past Drug Use History: None Reported - Past Family History Father Family Medical History: Hyperlipidemia Additional Family Medical History / Comment(s): AT AGE 70- COLON CA W/METS TO STOMACH, 6 CA'S FIRST AT AGE 45 HAD QUAD BYPASS, SKIN CA Mother Additional Family Medical History / Comment(s): AT AGE 85- BRAIN TUMOR ALZHIEMERS, X 3 CA AND STROKE Medications and Allergies Home Medications Medication Instructions Recorded Confirmed Type Omeprazole [PriLOSEC] 20 mg PO DAILY 03/04/14 09/12/19 History Nitroglycerin Sl Tabs [Nitrostat] 0.4 mg SUBLINGUAL Q5M PRN #25 tab 08/05/14 09/12/19 Rx Sertraline [Zoloft] 100 mg PO HS 09/04/14 09/12/19 History Aspirin EC [Ecotrin Low Dose] 81 mg PO DAILY 10/17/16 09/12/19 History Losartan Potassium [Cozaar] 25 mg PO DAILY 09/12/19 09/12/19 History Atorvastatin [Lipitor] 40 mg PO DAILY 30 Days #30 tab 09/14/19 Rx Gabapentin [Neurontin] 100 mg PO TID #12 cap 09/14/19 Rx Losartan [Cozaar] 25 mg PO DAILY #30 tab 09/14/19 Rx Metoprolol Tartrate [Lopressor] 25 mg PO BID 30 Days #60 tab 09/14/19 Rx valACYclovir [Valtrex] 1,000 mg PO DAILY 7 Days #7 tab 09/14/19 Rx Allergies Allergy/AdvReac Type Severity Reaction Status Date / Time prochlorperazine edisylate AdvReac Severe Hallucinati Verified 09/12/19 13:45 [From Compazine] ons prochlorperazine maleate AdvReac Severe Hallucinati Verified 09/12/19 13:45 [From Compazine] ons lisinopril AdvReac Coughing Verified 09/12/19 13:45 Physical Exam Vitals: Vital Signs Temp Pulse Pulse Resp BP BP Pulse Ox 02/16/20 07:54 97.7 F 93 16 135/65 100 02/16/20 03:06 78 18 158/72 96 02/16/20 02:12 97.7 F 76 18 164/79 95 02/16/20 01:20 89 02/16/20 01:14 98.2 F 86 18 155/95 97 Intake and Output 02/15/20 02/16/20 02/16/20 22:59 06:59 14:59 Intake Total 42.336 Balance 42.336 Intake: Intake, IV Titration 42.336 Amount Heparin Sod,Pork in 0.45% 42.336 NaCl 25,000 unit In 0.45 % NaCl 1 250ml.bag @ 8 UNITS/KG/HR 9.072 mls/hr IV .Q24H SHARONDA Rx#: [id number] Other: # Voids 1 Weight 112 kg PHYSICAL EXAMINATION: GENERAL: 64-year-old female in no acute distress at the time of my e xamination HEENT: Head is atraumatic, normocephalic. Pupils equal, round. Sclera anicteric. Conjunctiva are clear. Mucous membranes of the mouth are moist. Neck is supple. There is no elevated jugular venous pressure.] No carotid bruit is heard. HEART EXAMINATION: Heart S1, S2 normal. No murmur or gallop heard. CHEST EXAMINATION: Lungs are clear to auscultation and precussion. No chest wall tenderness is noted on palpation or with deep breathing. ABDOMEN: Soft, nontender. Bowel sounds are heard. No organomegaly noted. EXTREMITIES: 2+ peripheral pulses with no evidence of peripheral edema and no calf tenderness noted. NEUROLOGIC patient is awake, alert and oriented 3 . Results 02/16/20 05:15 02/16/20 05:15 Cardiac Enzymes 02/16/20 02/16/20 Range/Units 01:30 05:19 Troponin I <0.012 <0.012 (0.000-0.034) ng/mL Coagulation 02/16/20 Range/Units 05:15 APTT 23.6 (22.0-30.0) sec Lipids 02/16/20 Range/Units 05:15 Triglycerides 183 H (<150) mg/dL Cholesterol 177 (<200) mg/dL HDL Cholesterol 78 H (40-60) mg/dL CBC 02/16/20 Range/Units 05:15 WBC 7.7 (3.8-10.6) k/uL RBC 4.42 (3.80-5.40) m/uL Hgb 11.8 (11.4-16.0) gm/dL Hct 37.7 (34.0-46.0) % Plt Count 164 (150-450) k/uL Comprehensive Metabolic Panel 02/16/20 Range/Units 05:15 Sodium 139 (137-145) mmol/L Potassium 5.0 (3.5-5.1) mmol/L Chloride 111 H (98-107) mmol/L Carbon Dioxide 20 L (22-30) mmol/L BUN 21 H (7-17) mg/dL Creatinine 0.83 (0.52-1.04) mg/dL Glucose 115 H (74-99) mg/dL Calcium 9.2 (8.4-10.2) mg/dL Current Medications Generic Name Dose Route Start Last Admin Trade Name Freq PRN Reason Stop Dose Admin Acetaminophen 650 mg 02/16/20 08:06 02/16/20 08:37 Tylenol Tab PO 650 mg Q6HR PRN Administration Fever and/ or Pain Alprazolam 0.25 mg 02/16/20 08:45 Xanax PO Q6HR PRN Mild Anxiety Alprazolam 0.5 mg 02/16/20 08:45 Xanax PO Q6HR PRN Moderate Anxiety Aspirin 81 mg 02/17/20 09:00 Aspirin PO DAILY [facility] Atorvastatin Calcium 40 mg 02/17/20 09:00 Lipitor PO DAILY [facility] Heparin Sodium (Porcine) 0 unit 02/16/20 01:20 Heparin IV PER PROTOCOL PRN Low PTT Protocol Heparin Sodium/Sodium Chloride 250 mls @ 9.072 mls/hr 02/16/20 01:30 02/16/20 06:09 25,000 unit/ Sodium Chloride IV 11 units/kg/hr .Q24H SHARONDA 12.474 mls/hr Titration Protocol 8 UNITS/KG/HR Nitroglycerin/Dextrose 50 mg/ 250 mls @ 1.5 mls/hr 02/16/20 01:20 02/16/20 01:34 IV Solution IV 02/17/20 01:19 5 mcg/min .Q24H ONE 1.5 mls/hr Administration Protocol 5 MCG/MIN Sodium Chloride 1,000 ml/ IV 1,000 mls @ 112 mls/hr 02/16/20 08:45 02/16/20 09:49 Solution IV 02/16/20 17:40 Not Given .Q8H56M ONE 1 ML/KG/HR Metoprolol Tartrate 25 mg 02/16/20 09:00 02/16/20 09:49 Lopressor PO 25 mg BID SHARONDA Administration Nitroglycerin 0.4 mg 02/16/20 08:45 Nitrostat SUBLINGUAL Q5M PRN Chest Pain Intake and Output 02/15/20 02/16/20 02/16/20 22:59 06:59 14:59 Intake Total 42.336 Balance 42.336 Intake: Intake, IV Titration 42.336 Amount Heparin Sod,Pork in 0.45% 42.336 NaCl 25,000 unit In 0.45 % NaCl 1 250ml.bag @ 8 UNITS/KG/HR 9.072 mls/hr IV .Q24H SHARONDA Rx#: [id number] Other: # Voids 1 Weight 112 kg 02/16/20 05:15 02/16/20 05:15 EKG Interpretations (text) EKG shows an incomplete right bundle branch block pattern with nonspecific ST-T wave changes Assessment and Plan Plan: Assessment and plan #1 chest discomfort with radiation to the left arm and scapula area, troponins negative 3, EKG shows a normal sinus rhythm with incomplete right bundle branch block pattern and nonspecific ST-T wave changes. Clinical symptoms suggestive of possible unstable angina. #2 known history of coronary artery disease with prior multivessel stenting #3 hypertension #4 hyperlipidemia #5 prior history of smoking #6 family history of premature coronary artery disease #7 PTSD #8 hiatal hernia and history of esophageal stricture with dilated dilatation Plan We will obtain an echocardiogram with Doppler study, her most recent echo was performed in August revealed an ejection fraction of 60-65%. Patient has also been advised to undergo cardiac catheterization, the risks and benefits were explained to the patient in detail and she is willing to proceed. This will be performed today by Dr. Melvin. We will put the patient on an aspirin as well as statin and beta tigist, resume her angiotensin tigist. Further recommendations will be based on these findings and the patient's overall clinical course. DNP note has been reviewed, I agree with a documented findings and plan of care. Patient was seen and examined.
[2020-02-16] MEDS ORDERED: fentaNYL (PF) 50 MCG/ML 2 ML AMP IV ONE (10:31)
[2020-02-16] MEDS ORDERED: LIDOCAINE 1% INJ 10MG/ML (20 ML MDV) SQ ONE (10:33)
[2020-02-16] MEDS ORDERED: IV FLUID CONTINUATION 600 ML IV ONE (10:35)
[2020-02-16] MEDS ORDERED: BIVALIRUDIN BOLUS 250 MG/50 ML IV ONE (10:45)
[2020-02-16] MEDS ORDERED: CLOPIDOGREL 75 MG TAB ONE (10:48)
[2020-02-16] MEDS ORDERED: BIVALIRUDIN 250 MG in SODIUM CHLORIDE 0.9% 50 ML IV ONE (10:55)
[2020-02-16] MEDS ORDERED: IOPAMIDOL-370 125ML BTL INJ ONE (10:55)
[2020-02-16] MEDS ORDERED: CLOPIDOGREL 75 MG TAB PO ONE (10:55)
[2020-02-16] MEDS ORDERED: NITROGLYCERIN 1000MCG/10ML SYRINGE INTRACORON ONE (10:57)
[2020-02-16] MEDS ORDERED: IOPAMIDOL-370 100ML BTL INJ ONE (11:01)
[2020-02-16] MEDS ORDERED: ONDANSETRON 4 MG/2 ML VIAL ONE (11:10)
[2020-02-16] MEDS ORDERED: ONDANSETRON 4 MG/2 ML VIAL IVP ONE (11:13)
[2020-02-16] MEDS ORDERED: MAG HYDROX/AL HYDROX/SIMETH 30 ML CUP PO PRN (11:20)
[2020-02-16] MEDS ORDERED: ATROPINE SULFATE 0.1 MG/ML 10ML SYRINGE IV PRN (11:20)
[2020-02-16] MEDS ORDERED: ZOLPIDEM 5 MG TAB PO PRN (11:20)
[2020-02-16] MEDS ORDERED: RX INFO: IV CONTRAST WAS GIVEN 1 EACH MISC MISCELLANE PRN (11:20)
[2020-02-16] MEDS ORDERED: SODIUM CHLORIDE 0.9% 1,000 ML IV SCH (11:30)
[2020-02-16 12:05] VITALS: BMI 43.7
--- NOTE | 2020-02-16 12:29 | CC ---
CARDIAC CATHETERIZATION REPORT Mrs. Alexander is a 64-year-old female with a known history of coronary artery disease, status post stenting of the LAD in 2014, who presented with symptoms of unstable angina. Her cardiac enzyme were unremarkable but because of the persistent symptoms, recommendation made regarding cardiac catheterization. The procedures, risks, and complication were discussed with the patient who is in full understanding and agreement. PROCEDURE: Patient was brought to laborer carpentry dock in a fasting semi-sedated state after receiving fentanyl and Benadryl and achieving moderate conscious sedated state. Using Xylocaine anesthesia and Seldinger technique, a 6-Namibian sheath was introduced in the right radial artery. Selective right and left coronary angiography performed using 5-Namibian 3.5 bend right and left Nirav catheter. Multiple views of the coronary artery including hemiaxial views were obtained. Following that, angioplasty and stenting was performed following that/m5-Namibian tight pigtail catheter induced left ventricle and a 30-degree CAMACHO view and introduced in the left ventricle and pressures were calculated. Following that, catheter and sheath were removed. Hemostasis was obtained with deployment of a TR band. There was no immediate complication Patient was returned to her room in stable condition. FINDINGS: LEFT MAIN: This is a short size vessel bifurcating into left circumflex, left anterior descending artery. Left main coronary artery has no evidence of high-grade stenosis. LEFT ANTERIOR DESCENDING ARTERY: This is a large-sized vessel,. reaching toward the apex with a wraparound apex segment. The stented segment in the LAD is patent. There is intimal plaque of 20% to 30% throughout the vessel without any evidence of high- grade stenosis. LEFT CIRCUMFLEX: This is a large nondominant vessel giving rise to 3 obtuse marginal branch. After the second obtuse marginal branch, there is a 99% stenosis. The rest of the vessel has intimal disease without any evidence of high-grade stenosis. RIGHT CORONARY ARTERY: This is a dominant vessel, moderate in caliber, giving rise to a PDA distally. The right coronary artery in mid segment has diffuse intimal disease of 40% to 50% without any evidence of high-grade stenosis. LEFT VENTRICULOGRAM: Left ventriculogram was not performed. HEMODYNAMICS: The left ventricular end-diastolic pressure was 20 mmHg. There was about a 10-15 mm gradient across the aortic valve. CONCLUSION: 1. Critical stenosis involving the distal left circumflex. 2. Mild to moderate disease in the LAD and the right coronary artery. 3. Gradient across the aortic valve. RECOMMENDATION: In view of the finding anatomy, I recommend proceeding with angioplasty and stenting of the left circumflex. The procedure, its risks and complication were discussed with the patient who is in full understanding and agreement. MELISSA / AYDIN: [id number] /
--- NOTE | 2020-02-16 12:38 | PTCA ---
PERCUTANEOUSTRANS CORORONARY ANGIOGRAPHY Ms. Alexander she is a 64-year-old female with known history of coronary artery disease who presented with symptoms of unstable angina, underwent cardiac catheterization, was found to have critical stenosis involving the left circumflex. In view of that, recommendation made regarding angioplasty and stenting. The procedure, its risks and complications were discussed with the patient who is in full understanding and agreement. PROCEDURE: A 6-Paraguayan FL 3.5 guiding catheter introduced into the system, after stenting the left main, a 0.014 balanced medium weight J-wire was advanced across the lesion, positioned distally, then a 2.5 x 12 mm Trek balloon was advanced, 1 inflation at 8 atmospheres was done. Following that, the balloon was removed and a 3.0 x 23 mm Xience Loyda stent was deployed, post-dilated at 16 atmospheres, after the last inflation, after appropriate wait, the balloon and the guidewire were withdrawn back in the guiding catheter. Images were obtained and repeated. Those images reveal stable successful stenting. At that point, the guiding catheter, the balloon and the guidewire were removed and a left ventricular end-diastolic pressure was calculated. Following that, the sheath was removed, hemostasis was obtained with deployment of a TR band. There was no immediate complication. Patient was returned to her room in stable condition. Of note, the patient received Angiomax per protocol as well as an oral loading dose of clopidogrel. RESULTS: Successful stenting of the distal left circumflex with reduction of stenosis from 99% to 0%. RECOMMENDATION: Patient will be continued on aspirin, Plavix, and statin. The importance of dual antiplatelet treatment were discussed with the patient. She is in full understanding and agreement. Duration of procedure is 35 minutes. MMODL / IJN: [id number] /
[2020-02-16] MEDS: LOSARTAN 50 MG TAB PO SCH (13:16)
--- NOTE | 2020-02-16 15:16 | P.PN ---
Progress Note - Text Progress Note Date: 02/16/20 The patient is a 64-year-old female with a PMH of coronary artery disease status post MO and 3 stents in 2013, hypertension, and hyperlipidemia who presented to the ED as a transfer from [facility] for concerns of an MO. The patient reports that she was in her usual state of health until about 7 PM last night when she suddenly developed a left shoulder pressure-like discomfort with radiation to her left arm with associated shortness of breath and nausea. She was noted to be very hypertensive upon presentation at [facility] with BP 202/95, and a pulse of 107. EKG had revealed sinus tachycardia at 10 3 bpm with a right bundle branch block and a chest x-ray had revealed cardiomegaly but was otherwise unremarkable. Her laboratory evaluation from [facility] revealed a troponin of less than 0.03, magnesium 1.5, sodium 137, potassium 3.7, chloride 105, CO2 19, BUN 18, creatinine 0.87, glucose 258, WBC count 7.76, hemoglobin 12.3, and platelets of 191. She was given aspirin 325 mg and was started on nitroglycerin and heparin infusions and was transferred to [facility] for further management. She underwent stenting of the distal left circumflex with reduction of stenosis from 99% to 0%. She was started on aspirin, Plavix and statin. Patient was seen and examined. Patient reports complete resolution of her chest pain. She denies any chest pain, shortness of breath or palpitations. No nausea or vomiting. No fever or chills. We will continue present management. Continue aspirin, Lipitor and Plavix. Continue beta tigist. Follow-up echocardiogram. Follow cardiology consultation.
[2020-02-16 18:06] LABS: Hemoglobin A1C 6.6 % (4.0-6.0)
[2020-02-16 19:52] VITALS: RESP 16
[2020-02-16] MEDS ORDERED: SERTRALINE 100 MG TAB PO SCH (22:15)
[2020-02-17 07:23] LABS: Calcium 9.8 mg/dL (8.4-10.2); Potassium 4.9 mmol/L (3.5-5.1)
[2020-02-17 08:08] VITALS: TEMP 98
[2020-02-17] MEDS: LOSARTAN 50 MG TAB PO SCH (08:09)
[2020-02-17] MEDS: METOPROLOL TARTRATE 25 MG TAB PO SCH (08:09)
[2020-02-17] MEDS ORDERED: ATORVASTATIN 40 MG TAB PO SCH (09:00)
[2020-02-17] MEDS ORDERED: ASPIRIN 81 MG PO SCH (09:00)
[2020-02-17] MEDS ORDERED: ASPIRIN 325 MG TAB PO SCH (09:00)
[2020-02-17] MEDS ORDERED: CLOPIDOGREL 75 MG TAB PO SCH (09:00)
--- NOTE | 2020-02-17 10:30 | ECHOF ---
Referral Reason:chest pain MEASUREMENTS -------- HEIGHT: 160.0 cm WEIGHT: 111.6 kg BP: RVIDd: 3.2 cm (< 3.3) IVSd: 1.6 cm (0.6 - 1.1) LVIDd: 3.7 cm (3.9 - 5.3) LVPWd: 1.7 cm (0.6 - 1.1) IVSs: 2.0 cm LVIDs: 1.8 cm LVPWs: 1.6 cm LAESV Index (A-L): 14.75 ml/m Ao Diam: 3.2 cm (2.0 - 3.7) AV Cusp: 1.7 cm (1.5 - 2.6) LA Diam: 2.1 cm (2.7 - 3.8) MV EXCURSION: 15.271 mm (> 18.000) MV EF SLOPE: 88 mm/s (70 - 150) EPSS: 0.5 cm MV E Martir: 0.72 m/s MV DecT: 244 ms MV A Martir: 0.97 m/s MV E/A Ratio: 0.74 RAP: 5.00 mmHg RVSP: 18.11 mmHg FINDINGS -------- Sinus rhythm. This was a technically good study. The left ventricular size is normal. There is moderate concentric left ventricular hypertrophy. O verall left ventricular systolic function is normal with, an EF between 55 - 60 %. Normal LAP Grade 1 Diastolic Dysfunction. The right ventricle is normal in size. The left atrial size is normal. Normal LA size by volume 22+/-6 ml/m2. The right atrial size is normal. The aortic valve is trileaflet and appears structurally normal. The mitral valve is normal. The mitral valve leaflets are mildly thickened. Mild mitral regurgita tion is present. The tricuspid valve appears structurally normal. Trace tricuspid regurgitation present. Right cherelle tricular systolic pressure is normal at < 35 mmHg. There is no pulmonic regurgitation present. The aortic root size is normal. IVC Not well visulized. There is no pericardial effusion. CONCLUSIONS -------- 1. Sinus rhythm. 2. This was a technically good study. 3. The left ventricular size is normal. 4. There is moderate concentric left ventricular hypertrophy. 5. Overall left ventricular systolic function is normal with, an EF between 55 - 60 %. 6. Normal LAP Grade 1 Diastolic Dysfunction. 7. The right ventricle is normal in size. 8. The left atrial size is normal. 9. Normal LA size by volume 22+/-6 ml/m2. 10. The right atrial size is normal. 11. The aortic valve is trileaflet and appears structurally normal. 12. The mitral valve is normal. 13. The mitral valve leaflets are mildly thickened. 14. Mild mitral regurgitation is present. 15. The tricuspid valve appears structurally normal. 16. Trace tricuspid regurgitation present. 17. Right ventricular systolic pressure is normal at < 35 mmHg. 18. There is no pulmonic regurgitation present. 19. The aortic root size is normal. 20. IVC Not well visulized. 21. There is no pericardial effusion. TELEVISION REPAIR TEACHER: Taylor Corona RDCS
--- NOTE | 2020-02-17 10:31 | PN ---
PROGRESS NOTE Mrs. Alexander is a 64-year-old female with a history of coronary artery disease who presented with symptoms of unstable angina, underwent cardiac catheterization, was found to have critical stenosis involving the distal left circumflex, underwent stenting of that vessel. She is doing well this morning. She has no chest pain. Minimal left arm discomfort that has some atypical features. She has mild cough, no wheezing. Her breathing has been stable. No dizziness or palpitation. She continues to be at this time on aspirin 81 mg daily, Plavix 75 mg daily, losartan 50 mg daily, Lipitor 40 mg daily, metoprolol tartrate 25 mg twice a day, Zoloft. PHYSICAL EXAMINATION: Blood pressure 148/70 with a heart rate in the 60s. LUNGS: Clear. HEART: Regular rate and rhythm, S1, S2. No S3. No rub. ABDOMEN: Soft, nontender. EXTREMITIES: No edema, right radial pulse intact. LAB DATA: Revealed BUN and creatinine 17 and 0.8, potassium 4.9 cholesterol 184, LDL of 73. IMPRESSION: 1. Status post stenting of the left circumflex. 2. Prior history of coronary artery disease, stenting of the LAD. 3. Hypertension. 4. Hyperlipidemia. RECOMMENDATION: From the cardiac standpoint, will increase her activity. She should be able to be discharged home today and followed as an outpatient. MMODL / IJN: [id number] /
[2020-02-17 11:29] VITALS: BP 132/76; PULSE 68
[2020-02-17] MEDS ORDERED: PANTOPRAZOLE 40 MG TABLET PO STA (12:04)
--- NOTE | 2020-02-17 14:14 | P.DS ---
Providers Date of admission: 02/16/20 13:39 Expected date of discharge: 02/17/20 Attending physician: Nicolle Gandhi MD Consults: 02/16/20 01:24 Consult Physician Urgent Consulting Provider: Trent Arvizu Consult Reason/Comments: chest pain Do you want consulting provider notified?: Yes 02/16/20 11:20 Consult Physician Routine Consulting Provider: [facility] Consult Reason/Comments: Post Interventional patient Do you want consulting provider notified?: Already Contacted Primary care physician: Stated None Hospital Course: The patient is a 64-year-old female with a PMH of coronary artery disease status post SD and 3 stents in 2013, hypertension, and hyperlipidemia who presented to the ED as a transfer from [facility] for concerns of an SD. The patient reports that she was in her usual state of health until about 7 PM last night when she suddenly developed a left shoulder pressure-like discomfort with radiation to her left arm with associated shortness of breath and nausea. She was noted to be very hypertensive upon presentation at [facility] with BP 202/95, and a pulse of 107. EKG had revealed sinus tachycardia at 10 3 bpm with a right bundle branch block and a chest x-ray had revealed cardiomegaly but was otherwise unremarkable. Her laboratory evaluation from [facility] revealed a troponin of less than 0.03, magnesium 1.5, sodium 137, potassium 3.7, chloride 105, CO2 19, BUN 18, creatinine 0.87, glucose 258, WBC count 7.76, hemoglobin 12.3, and platelets of 191. She was given aspirin 325 mg and was started on nitroglycerin and heparin infusions and was transferred to [facility] for further management. She underwent stenting of the distal left circumflex with reduction of stenosis from 99% to 0%. She was started on aspirin, Plavix and statin. Echocardiogram was done which showed EF 55-60% with grade 1 diastolic dysfunction. Patient was seen and examined. No acute events overnight. Patient reports resolution of her chest pain. She denies any shortness of breath or palpitations. No nausea or vomiting. No fever or chills. Ambulating the hallway without any difficulties. She does complain of some heartburn symptoms. General: [non toxic], [no distress], [appears at stated age] Derm: [warm], [dry] Head: [atraumatic], [normocephalic], [symmetric] Eyes: [EOMI], [no lid lag], [anicteric sclera] Mouth: [no lip lesion], [mucus membranes moist] Cardiovascular: [S1S2 reg], [no murmur], [positive DP pulse bilateral], Lungs: [CTA bilateral], [no rhonchi, no rales] , [no accessory muscle use] Abdominal: [soft], [ nontender to palpation], [no guarding], [no appreciable organomegaly] Ext: [no gross muscle atrophy], [no edema], [no contractures] Neuro: [no focal neuro deficits] Psych: [Alert], [oriented], [appropriate affect] Unstable angina Diastolic CHF Hypertension Diabetes mellitus with hyperglycemia Dyslipidemia Patient underwent stent placement yesterday. Her symptoms have resolved. She will be continued on aspirin, Plavix, Lipitor and metoprolol. Her echocardiogram shows diastolic dysfunction. Her losartan has been increase d. She will need better blood pressure control through her PCP. Her blood pressure on discharge was 132/76. Her A1c is 6.6. She is a newly diagnosed diabetic. Plans to follow-up with PCP for further workup and management. Lipid panel shows LDL of 73, HDL 79 and triglycerides 158, total cholesterol 182. Continue Lipitor for dyslipidemia. [Patient to be discharged today with cardiology clearance. Needs adequate follow-up with PCP for management of hypertension and new onset diabetes. Follow-up cardiology in one week. This complex discharge took about 35 minutes to complete.] Pertinent Studies: Echocardiogram, EKG Procedures: Cardiac catheterization Patient Condition at Discharge: Stable Plan - Discharge Summary New Discharge Prescriptions: New Atorvastatin [Lipitor] 40 mg PO DAILY #30 tab Nitroglycerin Sl Tabs [Nitrostat] 0.4 mg SUBLINGUAL Q5M PRN #25 tab PRN Reason: Chest Pain Clopidogrel [Plavix] 75 mg PO DAILY #30 tab Losartan [Cozaar] 100 mg PO DAILY #60 tab Continue Omeprazole [PriLOSEC] 20 mg PO DAILY Aspirin EC [Ecotrin Low Dose] 81 mg PO DAILY Metoprolol Tartrate [Lopressor] 25 mg PO BID 30 Days #60 tab Albuterol Inhaler [Ventolin Hfa Inhaler] 2 puff INHALATION RT-QID PRN PRN Reason: Shortness Of Breath Sertraline HCl [Zoloft] 100 mg PO HS Discontinued Nitroglycerin Sl Tabs [Nitrostat] 0.4 mg SUBLINGUAL Q5M PRN #25 tab PRN Reason: Chest Pain Losartan Potassium [Cozaar] 50 mg PO DAILY Discharge Medication List Omeprazole [PriLOSEC] 20 mg PO DAILY 03/04/14 [History] Aspirin EC [Ecotrin Low Dose] 81 mg PO DAILY 10/17/16 [History] Metoprolol Tartrate [Lopressor] 25 mg PO BID 30 Days #60 tab 09/14/19 [Rx] Albuterol Inhaler [Ventolin Hfa Inhaler] 2 puff INHALATION RT-QID PRN 02/16/20 [History] Sertraline HCl [Zoloft] 100 mg PO HS 02/16/20 [History] Atorvastatin [Lipitor] 40 mg PO DAILY #30 tab 02/17/20 [Rx] Clopidogrel [Plavix] 75 mg PO DAILY #30 tab 02/17/20 [Rx] Losartan [Cozaar] 100 mg PO DAILY #60 tab 02/17/20 [Rx] Nitroglycerin Sl Tabs [Nitrostat] 0.4 mg SUBLINGUAL Q5M PRN #25 tab 02/17/20 [Rx] Follow up Appointment(s)/Referral(s): Alejandro Melvin MD [STAFF PHYSICIAN] - 1 Week (Office will call you with appointment time) Rehab [facility] RICHEY,Cardiac [NON-STAFF] - 1 Week (After discharge, you will follow- up with your errand runner. Once you have obtained a prescription for cardiac rehab, please call [phone] to set up an evaluation.) None,Stated [Primary Care Provider] - 1-2 days (please schedule a follow up with a primary care doctor) Patient Instructions/Handouts: *Surgery [facility] - After Heart Catheterization - Automotive Detailer Instructions, Heart Healthy Diet (DC) Activity/Diet/Wound Care/Special Instructions: Diet: Cardiac FU PCP within 3 days. FU Cardiology within 1 week. Discharge Disposition: HOME SELF-CARE
[2020-02-18] MEDS ORDERED: LOSARTAN 50 MG TAB PO SCH (09:00)
== END 2020-02-17 12:51 | disposition home or self-care (01) | DRG 247 ==
LOC: EC 01:05 → 3SCARD 01:24 → OBSVTOIN 13:39
PROVIDERS: ADMIT Internal Medicine; ATTEND Internal Medicine
PROC: 027034Z Dilation of Coronary Artery, One Artery with Drug-eluting Intraluminal Device, Percutaneous Approach (ICD-10-PCS; principal; 2020-02-16 09:25)
PROC: B2111ZZ Fluoroscopy of Multiple Coronary Arteries using Low Osmolar Contrast (ICD-10-PCS; principal; 2020-02-16 09:25)
DX: I25.110 Atherosclerotic heart disease of native coronary artery with unstable angina pectoris (principal); I50.32 Chronic diastolic (congestive) heart failure; E78.5 Hyperlipidemia, unspecified; I45.10 Unspecified right bundle-branch block; K21.9 Gastro-esophageal reflux disease without esophagitis; M19.90 Unspecified osteoarthritis, unspecified site; I25.82 Chronic total occlusion of coronary artery; G43.909 Migraine, unspecified, not intractable, without status migrainosus; F43.10 Post-traumatic stress disorder, unspecified; F32.9 Major depressive disorder, single episode, unspecified; I11.0 Hypertensive heart disease with heart failure; K44.9 Diaphragmatic hernia without obstruction or gangrene; E11.65 Type 2 diabetes mellitus with hyperglycemia; Z96.653 Presence of artificial knee joint, bilateral; Z79.899 Other long term (current) drug therapy; Z79.82 Long term (current) use of aspirin; Z79.02 Long term (current) use of antithrombotics/antiplatelets; Z88.8 Allergy status to other drugs, medicaments and biological substances; Z87.01 Personal history of pneumonia (recurrent); Z86.14 Personal history of Methicillin resistant Staphylococcus aureus infection; Z80.0 Family history of malignant neoplasm of digestive organs; Z82.3 Family history of stroke; Z82.49 Family history of ischemic heart disease and other diseases of the circulatory system; Z87.891 Personal history of nicotine dependence; Z95.5 Presence of coronary angioplasty implant and graft; Z90.49 Acquired absence of other specified parts of digestive tract; Z98.890 Other specified postprocedural states; I25.2 Old myocardial infarction
CPT/HCPCS: 36415; 80048; 80061; 83036; 84484; 85025; 85347; 85730; 93005; 93306; 93458; 96365; 96368; 99285